=== PATIENT | male | born 1950 | race Caucasian/White ===

== ENCOUNTER 2018-02-14 01:39 | Inpatient (IN) | payer BC, MEDICARE ==
[2018-02-14] MEDS ORDERED: Nitroglycerin 2% Ointment Foilpak UD TOP ONE (01:50)
[2018-02-14] MEDS ORDERED: Nitroglycerin 2% Ointment Foilpak UD TOP STA ×2 (01:50→02:15)
[2018-02-14] MEDS ORDERED: Albuterol-Ipratrop 3 mg / 0.5 (3 ml) UD IH STA (01:53)
[2018-02-14] MEDS ORDERED: Albuterol-Ipratrop 3 mg / 0.5 (3 ml) UD ONE (01:56)
--- NOTE | 2018-02-14 01:57 | ED PDOC ---
Arrival/HPI - General Chief Complaint: Chest Pain Time Seen by Provider: 02/14/18 01:50 Historian: Patient - Critical Care Critical Care Minutes: Other (35 minutes) Critical Care Time: Excluding Proc Time - History of Present Illness Narrative History of Present Illness (Text): 67yo male with history of hypertension, CAD, CABG, presents to ER for evaluation of worsening dyspnea throughout today. He Reports associated chills and a mild chest pain. Patient has mild leg swelling as well, which he states is chronic. He denies any cough, sputum, or weakness. He denies any fever, known sick contacts, recent travels, history of asthma or pneumonia. Patient reports he takes Aspirin and Plavix daily. At home, patient had an O2 saturation in the high 80's on room air and states he is not on home oxygen. He has no other medical complaints. Time/Duration: Prior to Arrival Past Medical History - Provider Review Nursing Documentation Reviewed: Yes - Travel History Have you recently traveled outside [place] w/in the past 3 mons?: No - Infectious Disease Hx of Infectious Diseases: None - Cardiac Hx Cardiac Disorders: Yes - Psychiatric Hx Substance Use: No - Surgical History Hx Coronary Artery Bypass Graft: Yes - Anesthesia Hx Anesthesia: Yes Hx Anesthesia Reactions: No Hx Malignant Hyperthermia: No Family/Social History - Physician Review Nursing Documentation Reviewed: Yes Family/Social History: No Known Family HX Smoking Status: Former Smoker (quit 9 years ago) Hx Alcohol Use: No Hx Substance Use: No Allergies/Home Meds Allergies/Adverse Reactions: Allergies Sulfa (Sulfonamide Antibiotics) Allergy (Verified 02/14/18 01:43) ANAPHYLAXIS Home Medications: Home Meds Medication Instructions Recorded Confirmed Aspirin [Ecotrin] 81 mg PO DAILY 02/14/18 02/14/18 Atorvastatin [Lipitor] 10 mg PO HS 02/14/18 02/14/18 Clopidogrel [Plavix] 75 mg PO DAILY 02/14/18 02/14/18 Gabapentin [Neurontin] 300 mg PO TID 02/14/18 02/14/18 Levothyroxine [Synthroid] 125 mcg PO DAILY 02/14/18 02/14/18 Lisinopril [Zestril] 5 mg PO DAILY 02/14/18 02/14/18 Metoprolol Tartrate [Lopressor] 25 mg PO BID 02/14/18 02/14/18 Novolog 02/14/18 Review of Systems - Physician Review All systems were reviewed & negative as marked: Yes - Review of Systems Constitutional: Other (chills). absent: Fevers Respiratory: SOB. absent: Cough, Sputum Cardiovascular: Chest Pain Gastrointestinal: absent: Abdominal Pain Physical Exam Vital Signs Reviewed: Yes Vital Signs Temp Pulse Resp BP Pulse Ox 02/14/18 04:29 98.7 F 92 H 16 128/86 100 02/14/18 03:43 93 H 18 123/73 99 02/14/18 03:03 118/69 02/14/18 01:43 99 F 108 H 26 H 143/91 H 100 Temperature: Afebrile Pulse: Tachycardic Respiratory Rate: Tachypneic Appearance: Positive for: Non-Toxic, Uncomfortable Mental Status: Positive for: Alert and Oriented X 3 - Systems Exam Head: Present: Atraumatic, Normocephalic Pupils: Present: PERRL Extroacular Muscles: Present: EOMI Mouth: Present: Moist Mucous Membranes Respiratory/Chest: Present: Respiratory Distress, Accessory Muscle Use, Wheezes (mild expiratory), Decreased Breath Sounds (bilaterally), Tachypneic Cardiovascular: Present: Normal S1, S2, Tachycardic (108 bpm). No: Murmurs Abdomen: No: Tenderness, Distention, Peritoneal Signs Upper Extremity: Present: Normal Inspection. No: Cyanosis, Edema Lower Extremity: Present: Edema (+ mild pedal edema bilateral lower extremities) , Normal ROM Neurological: Present: GCS=15, CN II-XII Intact, Speech Normal Skin: Present: Diaphoretic (mild) Psychiatric: Present: Alert, Oriented x 3, Normal Insight, Normal Concentration Medical Decision Making ED Course and Treatment: Impression: 67yo male with worsening shortness of breath Plan: -- Labs -- EKG -- Chest X-ray -- Duoneb 3ml INH -- Apsirin 325mg PO -- O2 via NC -- Urinalysis -- Reassess and disposition Progress Notes: 02/14/18 02:14 Chest X-ray reviewed with congestive heart failure vs. bilateral pneumonia; currently awaiting labs to determine diuresis vs. increasing fluids. Will support respiratory status with BiPAP and order ABG. Patient had minimal relief with duoneb. On re-exam, lung sounds are decreased but do not sound wet. 02/14/18 02:44 Labs reviewed and remarkable for elevated BNP, minimally elevated WBC at 11.4 Given patient is afebrile and Chest X-ray indicates bilateral findings, this is more likely acute CHF. DDimer is elevated as well so cannot exclude PE, which may result in some pulmonary failure. Empiric treatment with heparin started, which will also treat for anginal equivalent. IV Lasix started. Nitro 2% ointment applied as well. Unable to do PE study as patient has elevated creatinine levels. 02/14/18 03:[address] Sutton and patient admitted to Telemetry due to new onset CHF. Consult placed to Dr. Devlin and Dr. Tena per Dr. Sutton's request. Reassessment Condition: Improving,but remains with symptoms - Critical Care Critical Care Minutes: 30 minutes - Lab Interpretations Microbiology Results: Microbiology Results 02/14/18 02:20 Blood Blood Culture - Final NO GROWTH AFTER 5 DAYS 02/14/18 02:20 Blood Gram Stain - Final TEST NOT PERFORMED 02/14/18 01:50 Blood Blood Culture - Final NO GROWTH AFTER 5 DAYS 02/14/18 01:50 Blood Gram Stain - Final TEST NOT PERFORMED Lab Results: 02/14/18 01:50 02/14/18 01:50 Lab Results 02/14/18 02:30: pCO2 36, pO2 89.0, HCO3 22.3, ABG pH 7.40, ABG Total CO2 23.4, ABG O2 Saturation 99.0 H, ABG O2 Content 16.4, ABG Base Excess -2.1 L, ABG Hemoglobin 12.1, ABG Carboxyhemoglobin 2.1 H, POC ABG HHb (Measured) 1.0, ABG Methemoglobin 1.0, ABG O2 Capacity 16.6, Hgb O2 Saturation 95.9, FiO2 28.0 02/14/18 02:28: Urine Color Yellow, Urine Appearance Clear, Urine pH 6.0, Ur Specific [place] 1.025, Urine Protein 100 H, Urine Glucose (UA) Negative, Urine Ketones Negative, Urine Blood Trace-intact H, Urine Nitrate Negative, Urine Bilirubin Negative, Urine Urobilinogen 0.2, Ur Leukocyte Esterase Negative, Urine RBC 0 - 2, Urine WBC 0 - 2, Ur Epithelial Cells 0 - 2, Urine Bacteria Rare , Hyaline Casts 0 - 2 02/14/18 01:50: pO2 50, VBG pH 7.29 L, VBG pCO2 56.0, VBG HCO3 26.9, VBG Total CO2 28.6 H, VBG O2 Sat (Calc) 86.0 H, VBG Base Excess -0.7 L, VBG Potassium 4.9 , Sodium 138.0, Chloride 106.0, Glucose 166 H, Lactate 1.0, FiO2 21.0, Venous Blood Potassium 4.9 02/14/18 01:50: Sodium 142, Chloride 105, Potassium 4.9, Carbon Dioxide 25, Anion Gap 17, BUN 35 H, Creatinine 2.0 H, Est GFR ( Amer) 40, Est GFR ( Non-Af Amer) 33, Random Glucose 168 H, Calcium 9.0, Magnesium 1.8, Total Bilirubin 0.9, AST 46, ALT 60 H, Alkaline Phosphatase 63, Lactate Dehydrogenase 577, Total Creatine Kinase 302 H, CK-MB (CK-2) 2.1, CK-MB (CK-2) % Cancelled, Troponin I 0.02, NT-Pro-B Natriuret Pep 1360 H, Total Protein 7.8, Albumin 4.3, Globulin 3.5, Albumin/Globulin Ratio 1.2 02/14/18 01:50: PT 12.2, INR 1.07, APTT 25.6, D-Dimer, Quantitative 256 H 02/14/18 01:50: WBC 11.4 H, RBC 4.89, Hgb 13.7 L, Hct 41.1 L, MCV 84.0, MCH 28.0 , MCHC 33.3, RDW 14.0, Plt Count 176, MPV 10.5, Gran % 74.5 H, Lymph % (Auto) 15.4 L, [place] % (Auto) 7.1 H, Eos % (Auto) 2.7, Baso % (Auto) 0.3, Gran # 8.45 H , Lymph # (Auto) 1.8, [place] # (Auto) 0.8 H, Eos # (Auto) 0.3, Baso # (Auto) 0.03 - RAD Interpretation Radiology Orders: 02/14/18 01:50 CHEST PORTABLE [RAD] Stat - EKG Interpretation EKG Interpretation (Text): Sinus tachycardia at 108bpm Inferior q-wave Left axis deviation No ST changes Slight intraventricular delay QTc 490ms Interpreted by ED Physician: Yes - Medication Orders Current Medication Orders: Acetaminophen (Tylenol 325mg Tab) 650 mg PO Q4H PRN PRN Reason: Pain, Mild (1-3) Last Admin: 02/18/18 21:34 Dose: 650 mg MAR Pain/Vitals Document 02/18/18 21:34 BR (Rec: 02/18/18 21:34 BR [id number]) Pain Reassessment Is This A Pain ReAssessment? No Sleep Is patient sleeping during reassessment? No Presence of Pain Presence of Pain Yes Allopurinol (Zyloprim) 300 mg PO DAILY [facility] Last Admin: 02/19/18 11:45 Dose: Aspirin (Ecotrin) 81 mg PO DAILY [facility] Last Admin: 02/19/18 11:28 Dose: Atorvastatin Calcium (Lipitor) 10 mg PO DIN [facility] Last Admin: 02/18/18 17:36 Dose: 10 mg Carvedilol (Coreg) 3.125 mg PO BID [facility] Last Admin: 02/19/18 11:27 Dose: MAR Pulse and Blood Pressure Document 02/19/18 11:27 ID (Rec: 02/19/18 11:27 ID [id number]) Pulse Pulse Rate (60-90) 82 Blood Pressure Blood Pressure (100/60-150/90) 109/62 Clopidogrel Bisulfate (Plavix) 75 mg PO DAILY [facility] Last Admin: 02/19/18 11:40 Dose: Colchicine (Colocrys) 0.6 mg PO DAILY [facility] Stop: 02/21/18 23:59 Last Admin: 02/19/18 11:26 Dose: Digoxin (Digoxin) 0.125 mg PO [id number] [facility] Last Admin: 02/19/18 13:38 Dose: 0.125 mg MAR Apical Pulse Rate Document 02/19/18 13:38 ID (Rec: 02/19/18 13:38 ID [id number]) Apical Pulse Rate Apical Pulse Rate (60-90 beats/min) 82 Enoxaparin Sodium (Lovenox) 30 mg SC DAILY [facility] PRN Reason: Protocol Last Admin: 02/19/18 11:38 Dose: Famotidine (Pepcid) 40 mg PO BID [facility] Last Admin: 02/19/18 11:39 Dose: Furosemide (Lasix) 40 mg PO DAILY [facility] Last Admin: 02/19/18 11:36 Dose: MAR Blood Pressure Document 02/19/18 11:36 ID (Rec: 02/19/18 11:37 ID [id number]) Blood Pressure Blood Pressure (100/60-150/90) 109/66 Gabapentin (Neurontin) 300 mg PO TID [facility] PRN Reason: Protocol Last Admin: 02/19/18 13:39 Dose: 300 mg Behavioural Document 02/19/18 13:39 ID (Rec: 02/19/18 13:39 ID [id number]) Maintenance Maintenance Dose Yes Nonmedicinal Nonmedicinal Interventions Redirect Insulin Human Regular (Humulin R Low) 0 units SC ACHS [facility] PRN Reason: Protocol Last Admin: 02/19/18 12:31 Dose: Isosorbide Mononitrate (Imdur Er) 30 mg PO DAILY [facility] Last Admin: 02/19/18 11:36 Dose: Levothyroxine Sodium (Synthroid) 150 mcg PO 0600 [facility] Last Admin: 02/18/18 08:51 Dose: 150 mcg Ondansetron HCl (Zofran Inj) 4 mg IVP Q4H PRN PRN Reason: Nausea/Vomiting Polysaccharide Iron Complex (Ferrex-150) 150 mg PO DAILY [facility] Last Admin: 02/19/18 11:29 Dose: Discontinued Medications Albuterol/Ipratropium (Duoneb 3 Mg/0.5 Mg (3 Ml) Ud) 3 ml IH STAT STA Stop: 02/14/18 01:54 Last Admin: 02/14/18 02:01 Dose: 3 ml Aspirin (Aspirin) 325 mg PO STAT STA Stop: 02/14/18 01:51 Last Admin: 02/14/18 02:04 Dose: 325 mg Colchicine (Colocrys) 0.6 mg PO STAT STA Stop: 02/18/18 09:06 Last Admin: 02/18/18 10:40 Dose: 0.6 mg Colchicine (Colocrys) 0.6 mg PO ONCE ONE Stop: 02/18/18 13:01 Last Admin: 02/18/18 15:26 Dose: 0.6 mg Famotidine (Pepcid) 40 mg PO HS [facility] Last Admin: 02/16/18 21:14 Dose: 40 mg Furosemide (Lasix) 40 mg IVP STAT STA Stop: 02/14/18 02:41 Last Admin: 02/14/18 03:03 Dose: 40 mg MAR Blood Pressure Document 02/14/18 03:03 RG (Rec: 02/14/18 03:06 RG [id number]) Blood Pressure Blood Pressure (100/60-150/90) 118/69 IVP Administration Document 02/14/18 03:03 RG (Rec: 02/14/18 03:06 RG [id number]) Charges for Administration # of IVP Administrations 1 Furosemide (Lasix) 40 mg IV DAILY [facility] Last Admin: 02/15/18 09:13 Dose: 40 mg eMAR Start Stop Document 02/15/18 09:13 VM (Rec: 02/15/18 09:13 VM [id number]) Intravenous Solution Start Date 02/15/18 Start Time 09:13 MAR Blood Pressure Document 02/15/18 09:13 VM (Rec: 02/15/18 09:13 VM [id number]) Blood Pressure Blood Pressure (100/60-150/90) 108/65 Furosemide (Lasix) 40 mg IV ONCE ONE Stop: 02/14/18 18:20 Last Admin: 02/14/18 19:53 Dose: 40 mg eMAR Start Stop Document 02/14/18 19:53 BK (Rec: 02/14/18 19:53 BK [id number]) Intravenous Solution Start Date 02/14/18 Start Time 19:53 End Date 02/14/18 End time 19:55 Total Infusion Time 2 MAR Blood Pressure Document 02/14/18 19:53 BK (Rec: 02/14/18 19:53 BK [id number]) Blood Pressure Blood Pressure (100/60-150/90) 101/61 Heparin Sodium/Sodium Chloride (Heparin 64020 Units/250ml 1/2 Normal Saline) 25 ,000 units in 250 mls @ 15.431 mls/hr IV .[id number] PRN; Protocol; 18 UNITS/KG/HR PRN Reason: ADJUST RATE PER PROTOCOL Heparin Sodium/Sodium Chloride (Heparin 00866 Units/250ml 1/2 Normal Saline) 25 ,000 units in 250 mls @ 16.133 mls/hr IV .[id number] PRN; Protocol; 18 UNITS/KG/HR PRN Reason: ADJUST RATE PER PROTOCOL Last Titration: 02/14/18 03:40 Dose: 18 units/kg/hr, 16.133 mls/hr Titration Intervention Document 02/14/18 03:40 RG (Rec: 02/14/18 04:28 RG [id number]) Titration Intake Container Volume 250 Titration Dosing Titration Dose 18 IV Rate 16.133 Intake/Decrease Started Milrinone Lactate/Dextrose (Primacor 20mg/100ml D5w) 100 mls @ 5.383 mls/hr IV .[id number] PRN; Protocol; 0.2 MCG/KG/MIN PRN Reason: TITRATE PER MD ORDER Stop: 02/17/18 07:00 Last Admin: 02/16/18 20:11 Dose: 0.2 mcg/kg/min, 5.383 mls/hr eMAR Start Stop Document 02/16/18 20:11 FDE (Rec: 02/16/18 20:11 FDE [id number]) Intravenous Solution Start Date 02/16/18 Start Time 20:11 Titration Intervention Document 02/16/18 20:11 FDE (Rec: 02/16/18 20:11 FDE [id number]) Titration Intake Cumulative Intake (Rx) 300 Waste Amount 0 Container Volume 100 Titration Dosing Titration Dose 0.2 IV Rate 5.383 Intake/Decrease Started/Running Cumulative Dose 60 Iron Sucrose 200 mg/ Sodium (Chloride) 110 mls @ 110 mls/hr IVPB ONCE ONE Stop: 02/18/18 14:44 Last Admin: 02/18/18 15:13 Dose: 110 mls/hr eMAR Start Stop Document 02/18/18 15:13 DSZ (Rec: 02/18/18 15:13 DSZ [id number]) Intravenous Solution Start Date 02/18/18 Start Time 15:13 Levothyroxine Sodium (Synthroid) 125 mcg PO 0600 [facility] Last Admin: 02/15/18 05:24 Dose: 125 mcg Levothyroxine Sodium (Synthroid) 150 mcg PO 0600 [facility] Lisinopril (Zestril) 5 mg PO DAILY [facility] Last Admin: 02/15/18 09:11 Dose: 5 mg MAR Pulse and Blood Pressure Document 02/15/18 09:11 VM (Rec: 02/15/18 09:12 VM [id number]) Pulse Pulse Rate (60-90) 111 Blood Pressure Blood Pressure (100/60-150/90) 108/65 Metoprolol Tartrate (Lopressor) 25 mg PO BRKDIN [facility] Stop: 02/16/18 16:00 Last Admin: 02/16/18 08:23 Dose: 25 mg MAR Pulse and Blood Pressure Document 02/16/18 08:23 DLL (Rec: 02/16/18 08:24 DLL [id number]) Pulse Pulse Rate (60-90) 76 Blood Pressure Blood Pressure (100/60-150/90) 127/70 Nitroglycerin (Nitro-Bid 2% Oint) 1 ea TOP STAT STA Stop: 02/14/18 02:16 Last Admin: 02/14/18 03:26 Dose: 1 ea Nitroglycerin (Nitro-Bid 2% Oint) 0.5 ea TOP Q6H [facility] Last Admin: 02/17/18 09:29 Dose: Not Given Non-Admin Reason: Patient Refused Sodium Polystyrene Sulfonate (Kayexalate Susp) 30 gm PO ONCE ONE Stop: 02/17/18 09:13 Last Admin: 02/17/18 09:36 Dose: 30 gm Sodium Polystyrene Sulfonate (Kayexalate Susp) 15 gm PO ONCE ONE Stop: 02/17/18 16:42 Last Admin: 02/17/18 17:53 Dose: 15 gm Sodium Polystyrene Sulfonate (Kayexalate Susp) 30 gm PO ONCE ONE Stop: 02/18/18 08:42 Last Admin: 02/18/18 08:51 Dose: 30 gm Sodium Polystyrene Sulfonate (Kayexalate Susp) 30 gm PO ONCE ONE Stop: 02/18/18 14:01 Last Admin: 02/18/18 15:16 Dose: 30 gm - Scribe Statement The provider has reviewed the documentation as recorded by the Addie Pollard Provider Scribe Attestation: All medical record entries made by the Addie were at my direction and personally dictated by me. I have reviewed the chart and agree that the record accurately reflects my personal performance of the history, physical exam, medical decision making, and the department course for this patient. I have also personally directed, reviewed, and agree with the discharge instructions and disposition. Disposition/Present on Arrival - Present on Arrival Any Indicators Present on Arrival: No History of DVT/PE: No History of Uncontrolled Diabetes: No Urinary Catheter: No History of Decub. Ulcer: No History Surgical Site Infection Following: None - Disposition Have Diagnosis and Disposition been Completed?: Yes Diagnosis: Congestive heart failure Disposition: HOSPITALIZED Disposition Time: 03:39 Patient Plan: Admission, Telemetry Patient Problems: Current Active Problems Problem Status Onset Congestive heart failure Acute Condition: GUARDED
[2018-02-14 02:12] LABS: BASO # 0.03 K/mm3 (0.0-2.0); BASO % 0.3 % (0.0-3.0); EOS # 0.3 (0.0-0.7); EOS % 2.7 % (1.5-5.0); GRAN # 8.45 (1.4-6.5); GRAN % 74.5 % (50.0-68.0); HEMOGLOBIN 13.7 g/dL (14.0-18.0); LYMPH # 1.8 (1.2-3.4); LYMPH % 15.4 % (22.0-35.0); MEAN CORPUSCULAR HGB CONC 33.3 g/dl (31.0-37.0); MEAN PLATELET VOLUME 10.5 fl (7.0-11.0); MONO # 0.8 (0.1-0.6); MONO % 7.1 % (1.0-6.0); RBC 4.89 10^6/uL (3.5-6.1); WHITE BLOOD COUNT 11.4 10^3/ul (4.5-11.0)
[2018-02-14 02:20] LABS: ALB/GLOB RATIO 1.2 (1.1-1.8); ALBUMIN 4.3 g/dL (3.0-4.8)
[2018-02-14 02:23] LABS: INR 1.07 (0.93-1.08); PARTIAL THROMBOPLASTIN TIME 25.6 Seconds (25.1-36.5); PROTHROMBIN TIME 12.2 SECONDS (9.4-12.5)
[2018-02-14 02:32] LABS: TROPONIN I 0.02 ng/mL
[2018-02-14 02:34] LABS: VENOUS BLOOD GAS BASE EXCESS -0.7 mmol/L (0.0-2.0); VENOUS BLOOD GAS PO2 50 mm/Hg (30-55); VENOUS BLOOD PH 7.29 (7.32-7.43)
[2018-02-14 02:41] LABS: URINE BILIRUBIN NEGATIVE (NEGATIVE); URINE BLOOD TRACE-INTACT (NEGATIVE); URINE GLUCOSE (UA) NEGATIVE (NEGATIVE); URINE LEUKOCYTE ESTERASE NEGATIVE Leu/uL (NEGATIVE); URINE PROTEIN 100 mg/dL (<30 mg/dL); URINE UROBILINOGEN 0.2 E.U./dL (<1 E.U./dL)
[2018-02-14] MEDS ORDERED: Heparin25000 units/250ml 1/2NS 25,000 UNITS/250 ML BAG IV PRN (02:41)
[2018-02-14 02:42] LABS: URINE APPEARANCE CLEAR (CLEAR); URINE COLOR YELLOW (YELLOW)
[2018-02-14 02:44] LABS: CK-MB 2.1 ng/mL (0.0-3.6)
[2018-02-14 02:48] LABS: ARTERIAL BLOOD GAS HCO3 22.3 mmol/L (21-28); ARTERIAL BLOOD GAS HEMOGLOBIN 12.1 g/dL (11.7-17.4); ARTERIAL BLOOD GAS O2 CAPACITY 16.6 mL/dl (16-24); ARTERIAL BLOOD GAS O2 CONTENT 16.4 ML/dl (15-23); ARTERIAL BLOOD GAS PCO2 36 mm/Hg (35-45); ARTERIAL BLOOD GAS TCO2 23.4 mmol.L (22-28)
[2018-02-14 02:54] LABS: URINE BACTERIA RARE (NEG); URINE EPITHELIAL CELLS 0 - 2 /hpf (0-5); URINE RBC 0 - 2 /hpf (0-2); URINE WBC 0 - 2 /hpf (0-6)
[2018-02-14 02:55] LABS: URINE HYALINE CAST 0 - 2 /hpf
[2018-02-14 03:11] VITALS: BMI 31.8
[2018-02-14] MEDS ORDERED: Heparin 25,000units in 1/2NS /250 ML BAG IV PRN (03:35)
--- NOTE | 2018-02-14 08:11 | CP.PCM.CON ---
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 Claimed to have mild chest pain. Also complaints of bilateral leg pain, pain to touch to lower extremities . History of hypertension , ex-smoker, CAD with bypass grafting (CABG 5 years ago at [facility]hypothyroidism , diabetes, diabetic neuropathy,arthritis,hyperlipidemia. 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 Seen and examined by me and Dr. Ramsay Review of Systems - Constitutional Constitutional: As Per HPI - Cardiovascular Additional comments: denies chest pain now, mild chest pain yesterday - Respiratory Respiratory: Dyspnea on Exertion Additional comments: Nasal cannula - Gastrointestinal Additional comments: denies nausea,denies vomiting - Genitourinary Additional comments: one kidney smaller since childhood - Neurological Additional comments: denies problems Past Patient History - Infectious Disease Hx of Infectious Diseases: None - Past Social History Smoking Status: Former Smoker - CARDIAC Hx Cardiac Disorders: Yes (CAD, CABG) Hx Hypercholesterolemia: Yes Hx Hypertension: Yes - PULMONARY Hx Respiratory Disorders: No - NEUROLOGICAL Hx Neurological Disorder: No - HEENT Hx HEENT Problems: No Hx Cataracts: Yes (WITH SURGERY) - RENAL Hx Chronic Kidney Disease: No - ENDOCRINE/METABOLIC Hx Endocrine Disorders: Yes Hx Diabetes Mellitus Type 2: Yes (NEUROPATHY) Hx Hypothyroidism: Yes - HEMATOLOGICAL/ONCOLOGICAL Hx Blood Disorders: No - INTEGUMENTARY Hx Dermatological Problems: No - MUSCULOSKELETAL/RHEUMATOLOGICAL Hx Musculoskeletal Disorders: Yes Hx Arthritis: Yes Hx Back Pain: Yes Hx Falls: No Hx Fractures: Yes (L RIB) Other/Comment: L THUMB PARTIAL AMPUTATION S/P INJURY - GASTROINTESTINAL Hx Gastrointestinal Disorders: No - GENITOURINARY/GYNECOLOGICAL Hx Genitourinary Disorders: No - PSYCHIATRIC Hx Psychophysiologic Disorder: No Hx Substance Use: No - SURGICAL HISTORY Hx Surgeries: Yes Hx Cardiac Catheterization: Yes Hx Coronary Stent: Yes Hx Open Heart Surgery: Yes (CABG) Other/Comment: CATARACT SURGERY, TONSILLECTOMY - ANESTHESIA Hx Anesthesia: Yes Hx Anesthesia Reactions: No Hx Malignant Hyperthermia: No Meds Allergies/Adverse Reactions: Allergies Allergy/AdvReac Type Severity Reaction Status Date / Time Sulfa (Sulfonamide Allergy ANAPHYLAXIS Verified 02/14/18 01:43 Antibiotics) - Medications Medications: Current Medications Acetaminophen (Tylenol 325mg Tab) 650 mg PO Q4H PRN PRN Reason: Pain, Mild (1-3) Heparin Sodium/Sodium Chloride (Heparin 32284 Units/250ml 1/2 Normal Saline) 25 ,000 units in 250 mls @ 16.133 mls/hr IV .[id number] PRN; Protocol; 18 UNITS/KG/HR PRN Reason: ADJUST RATE PER PROTOCOL Last Titration: 02/14/18 03:40 Dose: 18 units/kg/hr, 16.133 mls/hr Ondansetron HCl (Zofran Inj) 4 mg IVP Q4H PRN PRN Reason: Nausea/Vomiting Physical Exam - Constitutional Additional comments: Mild shortness of breath at rest - Eye Exam Eye Exam: Normal appearance - ENT Exam ENT Exam: Mucous Membranes Moist - Respiratory Exam Respiratory Exam: Decreased Breath Sounds, NORMAL BREATHING PATTERN - Cardiovascular Exam Cardiovascular Exam: +S1, +S2 - GI/Abdominal Exam GI & Abdominal Exam: Normal Bowel Sounds, Soft - Extremities Exam Additional comments: 1+ edema, pain to touch - Neurological Exam Neurological exam: Alert, Oriented x3 - Psychiatric Exam Psychiatric exam: Normal Affect, Normal Mood - Skin Skin Exam: Intact, Normal Color, Warm Results - Vital Signs Recent Vital Signs: Last Vital Signs Temp 98.4 F 02/14/18 05:05 Pulse 91 H 02/14/18 05:56 Resp 20 02/14/18 05:56 BP 109/63 02/14/18 05:05 Pulse Ox 98 02/14/18 05:56 - Labs Result Diagrams: 02/14/18 01:50 02/14/18 01:50 Labs: Laboratory Results - last 24 hr 02/14/18 07:29 POC Glucose (mg/dL) 116 H Assessment & Plan - Assessment and Plan (Free Text) Assessment: Brief history of present illness: A 67 year old male who came in to the ER due to 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 Claimed to have mild chest pain. Also complaints of bilateral leg pain, pain to touch to lower extremities . History of hypertension , ex-smoker, CAD with bypass grafting (CABG 5 years ago at [facility]hypothyroidism , diabetes, diabetic neuropathy,arthritis,hyperlipidemia. 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 Plan: Acute shortness of breath D-dimer elevated, possible acute pulmonary embolism Possible acute congestive heart failure Started on Heparin drip, titrate to protocol Will order VQ scan to rule out PE CT scan not done due to elevated BUN/Creatinine Will order troponin to rule out ischemia ECHO to evaluate LV function Heart rate and blood pressure controlled Leg pain, Vascular studies to rule out DVT Will follow up Plan and treatment discussed with Dr. Ramsay Thank you for the opportunity of taking care of Mr. Moraima Lee
--- NOTE | 2018-02-14 08:30 | RAD ---
HISTORY: SOB COMPARISON: No prior. FINDINGS: LUNGS: Moderate vascular and interstitial congestion PLEURA: No significant pleural effusion identified, no pneumothorax apparent. CARDIOVASCULAR: Normal. OSSEOUS STRUCTURES: No significant abnormalities. VISUALIZED UPPER ABDOMEN: Normal. OTHER FINDINGS: None. IMPRESSION: Moderate vascular and interstitial congestion
--- NOTE | 2018-02-14 09:10 | CARD ---
APPROVED REPORT EKG Measurement Heart [id number] AL [id number] <Conclusion> Sinus tachycardia Possible Left atrial enlargement Left axis deviation Nonspecific intraventricular block Abnormal ECG
[2018-02-14] MEDS: Nitroglycerin 2% Ointment Foilpak UD TOP SCH ×3 (10:58→21:41)
[2018-02-14 11:18] LABS: TROPONIN I 0.02 ng/mL
--- NOTE | 2018-02-14 14:20 | NM ---
COMPARISON: Portable chest film 02/14/2018 TECHNIQUE: 33.2 mCi technetium 99-m inhaled DTPA 3.6 mCI technetium 99-m MAA administered intravenously. FINDINGS: VENTILATION COMPONENT: Normal. PERFUSION COMPONENT: Normal. IMPRESSION: Lowprobability ventilation perfusion scan for pulmonary embolism.
--- NOTE | 2018-02-14 16:30 | CON ---
DATE: 02/14/2018 PULMONARY CONSULT REFERRING PHYSICIAN: Yessi Sutton MD. REASON FOR CONSULTATION: Cough and shortness of breath. HISTORY OF PRESENT ILLNESS: This is a 67-year-old gentleman with past medical history significant for hypertension, coronary artery disease, history of coronary artery bypass surgery in the past, comes in to emergency room with chest discomfort, has some leg swelling. No fever. No chills. No hemoptysis. Had a D-dimer positive in the ER. Was placed on heparin IV. According to the patient, his pulse ox dropped down to 80s at home. PAST MEDICAL HISTORY: Coronary artery disease, history of coronary artery bypass surgery, hypertension. FAMILY HISTORY: No significant cardiopulmonary disease reported. SOCIAL HISTORY: Stopped smoking many years ago. Denies any alcohol use. ALLERGIES: TO SULFA. MEDICATIONS: He is on Ecotrin 81 mg daily, IV heparin, also Lasix 40 mg daily, Lipitor 10 mg daily, metoprolol tartrate 25 mg twice a day, Neurontin 300 mg three times a day, Plavix 75 mg daily, Synthroid 125 mcg daily, Tylenol p.r.n., Zestril 5 mg daily, Zofran p.r.n. REVIEW OF SYSTEMS: No headache. No rhinitis. Not much cough. No sputum production. Mild shortness of breath. No chest pain at present. No dysuria, leg pain. Trace leg swelling, though. PHYSICAL EXAMINATION: GENERAL: He was examined in the Nuclear Department. VITAL SIGNS: Temperature is 98, heart rate is 95, respiratory rate is 20, blood pressure 110/70, pulse ox 98% on 2 L nasal cannula. HEENT: Moist mucous membrane. Crowded airway. Mallampati score is 4. NECK: Supple. No JVD. LUNGS: Have a fair airflow with rhonchi. HEART: S1 and S2. ABDOMEN: Soft, nontender. No organomegaly. EXTREMITIES: Trace edema. NEUROLOGICAL: Awake and alert. Follows simple command. LABORATORY DATA: Shows hemoglobin 13.7, hematocrit 41.1, WBC 11.4, platelet is 176. INR is 1.07. PTT is 61. Has an ABG done, which showed pH 7.40, pCO2 of 36, O2 of 89, this is on nasal cannula. Sodium 142, potassium 4.9, chloride 105, bicarbonate is 25, BUN 35, creatinine 2, glucose 124, calcium is 9, magnesium 1.8, AST 46, ALT 60, alk phos is 63, LDH 460. ProBNP 1360. Albumin 4.3. TSH 4.96. His D-dimer is 256. V/Q scan is done, which showed low probability of ventilation-perfusion scan of pulmonary embolism. Venous Doppler is done, report is pending. Echocardiogram done, report is pending. IMPRESSION AND PLAN: Coronary artery disease, history of coronary artery bypass surgery, hypothyroid, hypertension, ex-smoker, diabetes. The patient was evaluated by Cardiology. Echocardiogram done, report is pending. Pulmonary point of view, I will discontinue IV heparin, place him on deep venous thrombosis prophylaxis. Cardiac workup. Outpatient will need pulmonary function test to assess lung function, also may need sleep study. Thank you and we will follow with you. Jeb Tena MD
--- NOTE | 2018-02-14 17:17 | US ---
HISTORY: Leg pain and swelling. Evaluate for DVT PHYSICIAN(S): Trent Chavez MD. TECHNIQUE: Duplex sonography and color-flow Doppler with graded compression were used to evaluate the deep venous systems of both lower extremities. FINDINGS: The visualized deep venous systems of both lower extremities are sonographically normal and compressible. Normal wave forms and augmentation are seen. There is no sonographic evidence for deep venous thrombosis in the visualized segments of both lower extremities. IMPRESSION: No sonographic evidence for deep venous thrombosis in the visualized segments of both lower extremities.
--- NOTE | 2018-02-14 18:17 | CARD ---
APPROVED REPORT EXAM: Two-dimensional and M-mode echocardiogram with Doppler and color Doppler. INDICATION Dyspnea Cardiac Disease: CAD CABG 2D DIMENSIONS Left Atrium (2D)4.2 (1.6-4.0cm)IVSd1.0 (0.7-1.1cm) LVDd5.8 (3.9-5.9cm)PWd1.1 (0.7-1.1cm) LVDs5.0 (2.5-4.0cm)FS (%) 13.4 % LVEF (%)28.1 (>50%) M-Mode DIMENSIONS Aortic Root2.70 (2.2-3.7cm)Aortic Cusp Exc.0.70 (1.5-2.0cm) Aortic Valve AoV Peak Iovvkzoe976.0cm/Bandar Peak GR.11mmHgLVOT Peak Ihlpgokz82.1cm/s LVOT VTI13.40cm Mitral Valve MV E Mvyfuyow367.0cm/sMV A Tqgquslj09.1cm/sE/A ratio1.4 TDI E/Lateral E'0.0E/Medial E'0.0 Tricuspid Valve TR Peak Lyxiabnt251zk/sRAP PCDPKYHZ19sgMiUG Peak Gr.26mmHg [id number] LEFT VENTRICLE The Left Ventricle is mildly dilated. There is normal left ventricular wall thickness. The systolic function is severely impaired.EF-25% There is global hypokinesis of the left ventricle. There is moderate to severe hypokinesis in the apical anterior wall. Transmitral Doppler flow pattern is Grade II-pseudonormal filling dynamics. No left ventricle thrombus noted on this study. There is no ventricular septal defect visualized. There is no left ventricular aneurysm. There is no mass noted in the left ventricle. RIGHT VENTRICLE The right ventricle is normal size. There is normal right ventricular wall thickness. The right ventricular systolic function is normal. ATRIA The left atrium is mildly dilated. The right atrium size is normal. The interatrial septum is intact with no evidence for an atrial septal defect. AORTIC VALVE The aortic valve is calcified and displays decreased opening. There is trace to mild aortic regurgitation. There is mild to moderate valvular aortic stenosis. There is no aortic valvular vegetation. MITRAL VALVE The mitral valve is thickened but opens well. Mitral regurgitation is moderate. There is no mitral valve stenosis. There is no evidence of mitral valve prolapse. TRICUSPID VALVE The tricuspid valve leaflets are thickened , but open well. There is mild tricuspid regurgitation.RVSP-36 mmof hg. There is no tricuspid valve stenosis. There is no tricuspid valve prolapse or vegetation. PULMONIC VALVE The pulmonic valve is not well visualized. GREAT VESSELS The aortic root is normal in size. The ascending aorta is normal in size. The pulmonary artery is normal. The IVC is normal in size and collapses >50% with inspiration. PERICARDIAL EFFUSION There is no pleural effusion. There is no pericardial effusion. <Conclusion> The Left Ventricle is mildly dilated. There is normal left ventricular wall thickness. The systolic function is severely impaired.EF-25% There is trace to mild aortic regurgitation. There is mild to moderate valvular aortic stenosis. Mitral regurgitation is moderate. There is mild tricuspid regurgitation.RVSP-36 mmof hg. The IVC is normal in size and collapses >50% with inspiration. There is no pericardial effusion.
[2018-02-14] MEDS: Milrinone 20mg/100ml D5W 100 ML IV PRN (20:44)
[2018-02-15] MEDS: Nitroglycerin 2% Ointment Foilpak UD TOP SCH ×4 (03:32→21:10)
[2018-02-15] MEDS ORDERED: Levothyroxine 125 MCG TAB PO SCH (06:00)
[2018-02-15 07:09] LABS: IRON 34 ug/dL (45-180)
[2018-02-15 07:19] LABS: TROPONIN I 0.02 ng/mL
[2018-02-15 07:22] LABS: LDL CHOLESTEROL 68 mg/dL (0-129)
[2018-02-15 07:24] LABS: % IRON SATURATION 13 % (20-55); TOTAL IRON BINDING CAPACITY 262 ug/dL (261-462)
[2018-02-15 07:26] LABS: ALB/GLOB RATIO 1.2 (1.1-1.8); ALBUMIN 3.8 g/dL (3.0-4.8); ALT/SGPT 50 U/L (7-56); AST/SGOT 41 U/L (17-59); BASO # 0.02 K/mm3 (0.0-2.0); BASO % 0.2 % (0.0-3.0); BLOOD UREA NITROGEN 48 mg/dL (7-21); CALCIUM 8.5 mg/dL (8.4-10.5); EOS # 0.3 (0.0-0.7); EOS % 2.8 % (1.5-5.0); GFR AFRICAN-AMERICAN 28; GFR NON-AFRICAN AMERICAN 24; GRAN # 7.25 (1.4-6.5); GRAN % 72.2 % (50.0-68.0); HDL CHOLESTEROL 35 mg/dL (29-60); HEMOGLOBIN 11.7 g/dL (14.0-18.0); LYMPH # 1.3 (1.2-3.4); LYMPH % 12.7 % (22.0-35.0); MEAN CELL VOLUME 83.3 fl (80.0-105.0); MEAN CORPUSCULAR HEMOGLOBIN 27.1 pg (25.0-35.0); MEAN CORPUSCULAR HGB CONC 32.5 g/dl (31.0-37.0); MEAN PLATELET VOLUME 10.3 fl (7.0-11.0); MONO # 1.2 (0.1-0.6); MONO % 12.1 % (1.0-6.0); RBC 4.32 10^6/uL (3.5-6.1); RED CELL DISTRIBUTION WIDTH 13.8 % (11.5-14.5); WHITE BLOOD COUNT 10.1 10^3/ul (4.5-11.0)
[2018-02-15] MEDS: Milrinone 20mg/100ml D5W 100 ML IV PRN (11:12)
[2018-02-15] MEDS: Insulin Reg-LOW-Coverage SC SCH ×3 (11:33→21:07)
[2018-02-15] MEDS: Enoxaparin 30 mg Syringe SC SCH (11:34)
[2018-02-15 14:21] LABS: FOLATE > 20.0 ng/mL
--- NOTE | 2018-02-15 16:32 | PN ---
DATE: 02/15/2018 REASON FOR CONSULTATION: Shortness of breath; coronary artery disease, status post CABG; acute decompensated congestive heart failure on chronic CHF secondary to ischemic cardiomyopathy. SUBJECTIVE: The patient denies any chest pain, denies any palpitations. Shortness of breath is improving. OBJECTIVE: GENERAL: Not in apparent distress. VITAL SIGNS: Temperature afebrile, heart rate 95, blood pressure 108/65. HEENT: PERRLA. Extraocular muscles intact. NECK: Supple. No carotid bruit. No thyromegaly. CHEST: Clear to auscultation. HEART: S1 and S2 regular. ABDOMEN: Soft. EXTREMITIES: Clubbing and cyanosis negative. LABORATORY DATA: Blood workup as follows; WBC 10.9, hemoglobin 11.9, hematocrit 36, platelet count 177. Chemistry shows sodium 130, potassium 5, chloride 100, carbon dioxide 28, anion gap of 16, BUN 48, creatinine 2.7. BNP is 1360. TSH 4.96, triglycerides 113, cholesterol 146, LDL 86, HDL 39. Troponin remains 0.02, negative. The patient underwent echocardiography that revealed ejection fraction 25%, gbbil-ja-gqvb aortic regurgitation, qvao-la-rsjsjebo valvular aortic stenosis, moderate mitral regurgitation, moderate tricuspid regurgitation, RV systolic pressure 36. Extremity ultrasound duplex scan is negative for DVT. V/Q scan, also low probability. IMPRESSION: No evidence of acute myocardial infraction. No evidence of acute deep venous thrombosis or pulmonary embolism; decompensated congestive heart failure, acute on chronic secondary to systolic dysfunction; history of coronary artery disease, status post coronary artery bypass grafting; diabetes; hypertension; hyperlipidemia; three-vessel coronary artery bypass grafting 5 years ago at [facility]; hypothyroidism; diabetic neuropathy; diabetic nephropathy. RECOMMENDATIONS: Continue gentle diuretics as renal function is tolerated. Continue IV Primacor. Suggest cardiac catheterization. If renal function remains stable, we will consider cardiac catheterization. Otherwise, we will do a stress test on Saturday. However, this cardiac catheterization clinical course and troponin level and renal function. We will follow with you. The patient has a history of stent prior to CABG. Continue Synthroid the patient was at home 125 mcg, but increase to 150. Continue atorvastatin. We will hold lisinopril because of the worsening renal insufficiency. Continue milrinone and monitor renal function closely. We will give DVT prophylaxis. Heparin was discontinued. Give renal adjusted dose of DVT prophylaxis and increase levothyroxine to 150 because of very elevated TSH. So far no evidence of acute UT. Repeat the lab in the morning. We will change Lasix to p.o. We will follow with you depending upon the renal function; as mentioned, we will schedule cardiac catheterization on Saturday versus a stress test. Thank you, Dr. Sutton, for providing us the opportunity in taking care of the patient, Moraima Rosa. Jeb Ramsay MD
--- NOTE | 2018-02-15 20:08 | PN ---
DATE: 02/15/2018 PULMONARY PROGRESS NOTE REFERRING PHYSICIAN: Yessi Sutton MD. SUBJECTIVE: Patient is lying in the bed, head at 45 degrees, sleepy, arousable, could not use CPAP last night. No headache, no rhinitis. No nausea, no dysuria. No leg pain, no leg swelling. OBJECTIVE: GENERAL: In no acute distress. VITAL SIGNS: Temperature is 98, heart rate 93, respiratory rate is 18, blood pressure 106/65, pulse ox 96% on nasal cannula. HEENT: Moist mucous membrane. Crowded airway. Mallampati score is 4. NECK: Supple. No JVD. LUNGS: Have a fair airflow with rhonchi. HEART: S1, S2. ABDOMEN: Soft, nontender. No organomegaly. EXTREMITIES: There is no edema. NEUROLOGIC: Awake, alert, follows simple command. MEDICATIONS: He is on Ecotrin 81 mg daily, insulin coverage, Lasix 40 mg daily, Lipitor 10 mg daily, metoprolol tartrate 25 mg twice a day, Lovenox 30 mg subcu daily, gabapentin 300 mg three times a day, Pepcid 40 mg at bedtime, Plavix 75 mg daily, Primacor IV had been started, Synthroid is 150 mcg daily, Tylenol p.r.n., Zestril 5 mg daily, Zofran on a p.r.n. basis. LABORATORY DATA: Shows hemoglobin 11.7, hematocrit 36, WBC 10.1, platelet is 177. His PTT is 68. Sodium 138, potassium 5, chloride 100, bicarbonate 28, BUN 48, creatinine 2.7, glucose 213, calcium 8.5, phosphorus 4.2, magnesium 1.7. Total bili 1.4, AST 41, ALT 50, alk phos is 55. LDH 391. ProBNP 938. Albumin is 3.8, cholesterol 144. Vitamin B12 at 656. Folate more than 20. TSH 6.65. Microbiology: Blood culture has been negative. Echocardiogram done yesterday shows right ventricle systolic pressure is 36, LV ejection fraction about 25%. Left ventricle mildly dilated. V/Q scan shows low probability of PE, has a venous Doppler done. There is no evidence of deep venous thrombosis. IMPRESSION AND PLAN: Coronary artery disease, history of coronary bypass surgery, hypothyroid, hypertension, ex-smoker, diabetes, and severe cardiomyopathy on echocardiography. Started on IV Primacor. May have a component of sleep apnea syndrome. Could not use CPAP. We will change the pressure to low rate. Keep head at 45 degrees. We will recommend outpatient sleep study. Gastric prophylaxis. On anticoagulation. Follow up labs in the morning. Thank you and we will follow with you. Jeb Tena MD
--- NOTE | 2018-02-15 22:59 | PN ---
DATE: 02/15/2018 SUBJECTIVE: Patient is a 67-year-old male. Patient was seen and examined at the bedside, looking comfortable. No nausea, vomiting, or diarrhea. No hematuria, no hematochezia. No swelling of the legs. No chest pain, no palpitation. No headache, no dizziness. PHYSICAL EXAMINATION: VITAL SIGNS: Temperature 98.6, heart rate 95, blood pressure 108/65, respiratory rate 18. HEENT: Head normocephalic, atraumatic. Eyes PERRLA. Extraocular muscles intact. Conjunctivae clear. Nose patent. Mucous membrane moist. NECK: Supple. No carotid bruit. No JVD or thyromegaly. CHEST: Bilaterally symmetrical. HEART: S1 and S2 positive. LUNGS: Clear to auscultation. ABDOMEN: Soft. Bowel sounds present. No organomegaly. EXTREMITIES: No clubbing. No cyanosis. LABORATORY DATA: White blood cells 10.9, hemoglobin 11.9, hematocrit 36, platelet 177. Sodium 130, potassium 5, BUN 48, creatinine 2.7. TSH 4.96 ASSESSMENT AND PLAN: Mr. Moraima Lee, 67-year-old male with no evidence of acute myocardial infarction, no evidence of acute deep vein thrombosis or pulmonary embolism, decompensated congestive heart failure, acute on chronic, secondary to systolic dysfunction; coronary artery disease, status post coronary artery bypass grafting; diabetes mellitus; hypertension; hypercholesterolemia; chronic obstructive pulmonary disease; three-vessel coronary artery disease, bypass graft 5 years ago in [facility]; hypothyroidism; diabetic neuropathy; diabetic nephropathy. Patient is admitted in [facility]. Continue gentle diuresis as renal function is tolerating, IV Primacor. Suggested cardiac catheterization. If renal function test remains stable, consider cardiac catheterization, as per rack worker. Otherwise, we will go for stress test on Saturday. We will continue present treatment. Appreciate Dr. Ramsay's input. We will follow up. Yessi Sutton MD
[2018-02-16] MEDS: Milrinone 20mg/100ml D5W 100 ML IV PRN ×2 (01:07→20:11)
[2018-02-16] MEDS: Nitroglycerin 2% Ointment Foilpak UD TOP SCH ×4 (03:23→21:29)
--- NOTE | 2018-02-16 04:41 | HP ---
The patient was seen and examined at the bedside on 02/14/2018, while resting on the bedside. CHIEF COMPLAINT: Chest pain and shortness of breath. HISTORY OF PRESENT ILLNESS: Mr. Rachael Lee is a [id number] male with history of hypertension, coronary artery disease, CABG, came to the emergency room for evaluation of worsening dyspnea throughout today. He reports associated chills and mild chest pain. The patient has mild leg swelling as well, which he states chronic. He denies any cough, sputum or weakness. He denies any fever or sick contacts, recent travel, history of asthma or pneumonia. The patient reports he takes aspirin and Plavix daily at home. The patient had oxygen saturation in the 80s on room air and states he is not on home oxygen. PAST MEDICAL HISTORY: As above. History of coronary artery bypass graft, hypertension, obesity, coronary artery disease. FAMILY HISTORY: Father and mother noncontributory. HABITS: Former smoker, quit 9 years ago. Alcohol, no; substance abuse, no. ALLERGIES: ALLERGIC TO SULFA. HOME MEDICATIONS: Ecotrin, Lipitor, Plavix, Neurontin, Synthroid, Zestril, Lopressor. REVIEW OF SYSTEMS: The patient was seen and examined on the bedside; is seen at the also. All questions answered. As per patient, having dyspnea especially on walking, sometimes getting shortness of breath, chest pain; otherwise, no chills, no fever. No nausea, vomiting, diarrhea. No abdominal pain. No cough or sputum production. PHYSICAL EXAMINATION VITAL SIGNS: Temperature 98.7, pulse 92, respiratory 16, blood pressure 128/86, pulse oximetry 100%. HEENT: Head normocephalic, atraumatic. Eyes: PERRLA. Extraocular muscles intact. Conjunctivae clear. Nose patent. Mucous membrane moist. NECK: Supple. No carotid bruit. No JVD or thyromegaly. CHEST: Bilaterally symmetrical. HEART: S1 and S2 positive. LUNGS: Clear to auscultation. ABDOMEN: Soft. Bowel sounds present. No organomegaly. EXTREMITIES: No edema, no cyanosis. NEUROLOGIC: The patient is awake, alert, and moving all four extremities. No focal deficits. LABORATORY DATA: White blood cell 11.4, hemoglobin 13.7, hematocrit 41.1, platelets 142. BUN 35, creatinine 2. Glucose 168. ASSESSMENT AND PLAN: Mr. Moraima Lee is a 67-year-old male with leukocytosis, anemia, renal insufficiency, hyperglycemia, came in to [facility] Emergency Room for dyspnea, chest pain, has history of coronary artery disease, history of coronary artery bypass graft, hypertension, hypothyroidism, hypercholesterolemia, ex-smoker, diabetes mellitus. The patient is seen by computer technical specialist and Pulmonary. Echocardiography done, the report is pending. Dr. Tena discontinued the IV heparin, placed him on the deep vein thrombosis prophylaxis. Cardiac workup pending. Outpatient need pulmonary function test to assess the lung function. May be also need sleep study, rule out obstructive sleep apnea syndrome, try to lose weight. Labs done, reviewed by me. Extremity ultrasound is done, reviewed by me. History of mild chest pain, now it is better. Diabetic neuropathy, arthritis. Works as a application security developer. D-dimer elevated, possibly acute pulmonary embolism or possibly acute congestive heart failure. The patient was on heparin and Dr. Tena discontinued that. VQ scan reviewed by me for PE. Care Analyst ordered troponin to rule out ischemia, GI and deep venous thrombosis prophylaxis. Repeat labs. We will follow. Yessi Sutton MD MTDD
[2018-02-16] MEDS: Levothyroxine 150 MCG TAB PO SCH (05:57)
[2018-02-16] MEDS ORDERED: Levothyroxine 125 MCG TAB PO SCH (06:00)
[2018-02-16 07:25] LABS: BASO # 0.02 K/mm3 (0.0-2.0); BASO % 0.2 % (0.0-3.0); EOS # 0.4 (0.0-0.7); EOS % 4.3 % (1.5-5.0); GRAN # 5.56 (1.4-6.5); GRAN % 65.8 % (50.0-68.0); HEMOGLOBIN 12.3 g/dL (14.0-18.0); LYMPH # 1.7 (1.2-3.4); LYMPH % 19.6 % (22.0-35.0); MEAN CELL VOLUME 82.4 fl (80.0-105.0); MEAN CORPUSCULAR HEMOGLOBIN 27.3 pg (25.0-35.0); MEAN CORPUSCULAR HGB CONC 33.2 g/dl (31.0-37.0); MEAN PLATELET VOLUME 10.5 fl (7.0-11.0); MONO # 0.9 (0.1-0.6); MONO % 10.1 % (1.0-6.0); RBC 4.5 10^6/uL (3.5-6.1); RED CELL DISTRIBUTION WIDTH 13.5 % (11.5-14.5); WHITE BLOOD COUNT 8.5 10^3/ul (4.5-11.0)
[2018-02-16 07:43] LABS: ALB/GLOB RATIO 1.2 (1.1-1.8); ALBUMIN 3.8 g/dL (3.0-4.8); CALCIUM 8.5 mg/dL (8.4-10.5)
[2018-02-16] MEDS: Insulin Reg-LOW-Coverage SC SCH ×4 (08:19→21:13)
[2018-02-16] MEDS: Enoxaparin 30 mg Syringe SC SCH (09:23)
--- NOTE | 2018-02-16 19:17 | PN ---
DATE: 02/16/2018 PULMONARY PROGRESS NOTE REFERRING PHYSICIAN: Yessi Sutton MD SUBJECTIVE: The patient is lying in the bed, head at 45 degrees. Night was unremarkable. Could not use BiPAP last night on Primacor drip. Overall feels better. Decreased cough and shortness of breath. No nausea. No vomiting. No diarrhea. No leg pain or leg swelling. OBJECTIVE: GENERAL: In no acute distress. VITAL SIGNS: Temperature is 98, heart rate is 89, respiratory rate is 20, blood pressure 101/54, pulse ox 98% on 2 liters nasal cannula. HEENT: Moist mucous membranes. Crowded airway. Mallampati score is 4. NECK: Supple. No JVD. LUNGS: Have a few crackles. HEART: S1 and S2. ABDOMEN: Soft, nontender. No organomegaly. EXTREMITIES: No edema. NEUROLOGICAL: Awake and alert. Follows simple command. MEDICATIONS: He is on Coreg 3.125 mg twice a day, digoxin 0.125 mg daily, Ecotrin 81 mg daily, insulin coverage, Lasix 40 mg daily, Lipitor 10 mg daily, Lovenox 30 mg subcu daily, gabapentin 300 mg three times a day, Pepcid is 40 mg at bedtime, Plavix 75 mg daily, Primacor IV drip, Synthroid 150 mcg daily, Tylenol p.r.n., Zestril 5 mg daily, Zofran p.r.n. basis. LABORATORY DATA: Shows hemoglobin 12.3, hematocrit 37.1, WBC 8.5, platelet count is 194. PTT yesterday 68. Sodium 139, potassium 4.9, chloride 99, bicarbonate is 30, BUN 55, creatinine 2.6, glucose 153, calcium 8.5, phosphorus 3.9, magnesium 1.9, AST 25, ALT 41, alkaline phosphatase is 53. Albumin 3.8. Microbiology, blood culture has been negative. IMPRESSION AND PLAN: Coronary artery disease, history of coronary artery bypass surgery, hypothyroid, hypertension, ex-smoker, diabetes, severe cardiomyopathy on Primacor drip. I had a long discussion with the patient about sleep apnea. It's relation to cardiomyopathy. Encouraged him to use CPAP. He expressed understanding and will use that. We will get outpatient attended sleep study. Continue Primacor diuretics, beta-porfirio, gastric prophylaxis, anticoagulation. Cardiology followup. Thank you and we will follow with you. Jeb Tena MD [facility] # [id number]
--- NOTE | 2018-02-16 21:07 | PN ---
DATE: 02/16/2018 REASON FOR THE CONSULTATION AND FOLLOWUP: Shortness of breath; coronary artery disease, CABG; acute decompensated congestive heart failure and chronic renal insufficiency secondary to ischemic cardiomyopathy. SUBJECTIVE: The patient denies any chest pain, shortness of breath or any palpitation. PHYSICAL EXAMINATION GENERAL: Not in any apparent distress. VITAL SIGNS: Temperature is afebrile, heart rate 69, blood pressure 101/54. HEENT: PERRLA. Extraocular muscles intact. NECK: Supple. No carotid bruits or thyromegaly. CHEST: Clear to auscultation. HEART: S1 and S2 regular. ABDOMEN: Soft. EXTREMITIES: Clubbing and cyanosis negative. LABORATORY DATA: WBC 8.5, hemoglobin 12.3, hematocrit 37.1, platelet count 194. Chemistry shows sodium 130, potassium 4.9, chloride 99, carbon dioxide 30, anion gap of 15, BUN 55, creatinine 2.6. IMPRESSION: Acute decompensated congestive heart failure in 67-year-old male with past medical history significant for coronary artery disease status post coronary artery bypass graft 5 years ago, admitted with acute shortness of breath, decompensated congestive heart failure, V/Q scan is negative for low probability. Echo shows a fairly decreased left ventricular function. Venous Duplex negative for deep venous thrombosis. History of coronary artery disease as mentioned five years ago with three-vessel bypass at [facility]. Echo shows ejection fraction of 25%, trace mitral regurgitation, trace aortic regurgitation, mild to moderate valvular aortic stenosis, moderate mitral regurgitation, mild tricuspid regurgitation with right ventricular systolic pressure of 36. RECOMMENDATION: The patient is scheduled for cardiac catheterization tomorrow. The patient refused and wanted to go home. Discussed with . We will start heart failure therapy, change Lasix to p.o., continue aspirin, changed metoprolol to Coreg and low dose digoxin Saturday, Saturday and Saturday. Discontinue Primacor tomorrow. Possible discharge home. The patient wanted to go home and discussed with . Does not want cardiac catheterization and opted for medical treatment. For now, wanted to go home. Possible discharge home in the a.m. We will adjust the medication including nitrates to p.o. and Lasix p.o. We will change to Coreg and discontinue milrinone tomorrow at 7. Possible discharge home tomorrow. Thank you, Dr. Sutton, for providing us the opportunity in taking care of the patient, Moraima Lee. Jeb Ramsay MD
[2018-02-17] MEDS: Nitroglycerin 2% Ointment Foilpak UD TOP SCH ×2 (03:08→09:29)
[2018-02-17] MEDS: Levothyroxine 150 MCG TAB PO SCH (05:19)
--- NOTE | 2018-02-17 06:43 | CP.PCM.PN ---
Subjective - Date & Time of Evaluation Date of Evaluation: 02/17/18 Time of Evaluation: 06:25 - Subjective Subjective: Awake,lying in bed, mild shortness of breath Reason for consultation: Cardiac evaluation for shortness of breath.history of Coronary artery disease with bypass grafting 5 years ago at [facility]3], hypertension, hypothyroidism, diabetes, diabetic neuropathy,arthritis, hyperlipidemia Seen and examined by me and Dr. Ramsay Objective - Vital Signs/Intake and Output Vital Signs (last 24 hours): Temp Pulse Resp BP Pulse Ox 98.3 F 98 H 18 121/71 96 02/17/18 05:50 02/17/18 05:50 02/17/18 05:50 02/17/18 05:50 02/17/18 05:50 Intake and Output: 02/16/18 02/17/18 18:59 06:59 Intake Total 360 285 Output Total 900 350 Balance -540 -65 - Medications Medications: Current Medications Acetaminophen (Tylenol 325mg Tab) 650 mg PO Q4H PRN PRN Reason: Pain, Mild (1-3) Last Admin: 02/17/18 01:23 Dose: 650 mg Aspirin (Ecotrin) 81 mg PO DAILY [facility] Last Admin: 02/16/18 09:21 Dose: 81 mg Atorvastatin Calcium (Lipitor) 10 mg PO DIN [facility] Last Admin: 02/16/18 16:51 Dose: 10 mg Carvedilol (Coreg) 3.125 mg PO BID [facility] Last Admin: 02/16/18 17:32 Dose: 3.125 mg Clopidogrel Bisulfate (Plavix) 75 mg PO DAILY [facility] Last Admin: 02/16/18 09:22 Dose: 75 mg Digoxin (Digoxin) 0.125 mg PO MoWeFr@1400 [facility] Enoxaparin Sodium (Lovenox) 30 mg SC DAILY [facility] PRN Reason: Protocol Last Admin: 02/16/18 09:23 Dose: 30 mg Famotidine (Pepcid) 40 mg PO HS [facility] Last Admin: 02/16/18 21:14 Dose: 40 mg Furosemide (Lasix) 40 mg PO DAILY [facility] Last Admin: 02/16/18 09:22 Dose: 40 mg Gabapentin (Neurontin) 300 mg PO TID [facility] PRN Reason: Protocol Last Admin: 02/16/18 17:32 Dose: 300 mg Milrinone Lactate/Dextrose (Primacor 20mg/100ml D5w) 100 mls @ 5.383 mls/hr IV .[id number] PRN; Protocol; 0.2 MCG/KG/MIN PRN Reason: TITRATE PER MD ORDER Stop: 02/17/18 07:00 Last Admin: 02/16/18 20:11 Dose: 0.2 mcg/kg/min, 5.383 mls/hr Insulin Human Regular (Humulin R Low) 0 units SC ACHS [facility] PRN Reason: Protocol Last Admin: 02/16/18 21:13 Dose: Not Given Levothyroxine Sodium (Synthroid) 150 mcg PO 0600 [facility] Last Admin: 02/17/18 05:19 Dose: 150 mcg Lisinopril (Zestril) 5 mg PO DAILY [facility] Last Admin: 02/15/18 09:11 Dose: 5 mg Nitroglycerin (Nitro-Bid 2% Oint) 0.5 ea TOP Q6H [facility] Last Admin: 02/17/18 03:08 Dose: Not Given Ondansetron HCl (Zofran Inj) 4 mg IVP Q4H PRN PRN Reason: Nausea/Vomiting - Labs Labs: 02/16/18 06:30 02/16/18 06:30 PT 12.2 SECONDS (9.4-12.5) 02/14/18 01:50 INR 1.07 (0.93-1.08) 02/14/18 01:50 APTT 68.4 Seconds (25.1-36.5) H 02/14/18 16:07 - Constitutional Appears: No Acute Distress - Head Exam Head Exam: NORMOCEPHALIC - Eye Exam Eye Exam: Normal appearance - ENT Exam ENT Exam: Mucous Membranes Moist - Respiratory Exam Respiratory Exam: Decreased Breath Sounds, NORMAL BREATHING PATTERN - Cardiovascular Exam Cardiovascular Exam: REGULAR RHYTHM, +S1, +S2 - GI/Abdominal Exam GI & Abdominal Exam: Soft, Normal Bowel Sounds - Exam Additional comments: continent/urinal - Extremities Exam Extremities Exam: Normal Capillary Refill Additional comments: 1+ edema right leg - Neurological Exam Neurological Exam: Alert, Awake, Oriented x3 - Psychiatric Exam Psychiatric exam: Normal Affect, Normal Mood - Skin Skin Exam: Intact, Normal Color, Warm Assessment and Plan - Assessment and Plan (Free Text) Assessment: A 67 year old male who came in 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 Claimed to have mild chest pain. Also complaints of bilateral leg pain, pain to touch to lower extremities . History of hypertension, ex-smoker, CAD with bypass grafting (CABG 5 years ago at [facility]).hypothyroidism, diabetes, diabetic neuropathy,arthritis,hyperlipidemia. Prior to admission, walked a lot and with no problems, worked as a information security consultant. Work up negative for pulmonary embolism ,coronary ischemia and DVT. Acute decompensated congestive heart failure, LVEF on Echo 25%.Mild AR,moderate MR,moderate aortic stenosis,Severely impaired systolic function. Started on Primacor drip. Plan: Refusing cardiac catheterization and Stress test Instructed to follow up with his Technology Sales Consultant at [facility] Will discontinue Primacor drip May discharge to home Heart rate and blood pressure controlled Less short of breath compared to baseline.able to lie down in bed with one pillow, controlled CHF. On ASA 81 mg daily,Coreg 3.125 mg BID,Lipitor 10 mg daily Digoxin 0.125 mg 3 x a week (MWF),Lovenox 30 mg daily, Plavix 75 mg daily, Lasix 40 mg daily,Lisinopril 5 mg daily, Nitrobid ointment top every 6 hours Follow up with PMD and Technology Sales Consultant post discharge. Plan and treatment discussed with Dr. Ramsay
[2018-02-17 07:28] LABS: BASO # 0.03 K/mm3 (0.0-2.0); BASO % 0.4 % (0.0-3.0); EOS # 0.4 (0.0-0.7); EOS % 4.3 % (1.5-5.0); GRAN # 5.6 (1.4-6.5); GRAN % 68.3 % (50.0-68.0); HEMOGLOBIN 12.5 g/dL (14.0-18.0); LYMPH # 1.3 (1.2-3.4); LYMPH % 15.9 % (22.0-35.0); MEAN CELL VOLUME 83.1 fl (80.0-105.0); MEAN CORPUSCULAR HEMOGLOBIN 27.8 pg (25.0-35.0); MEAN CORPUSCULAR HGB CONC 33.4 g/dl (31.0-37.0); MEAN PLATELET VOLUME 9.6 fl (7.0-11.0); MONO # 0.9 (0.1-0.6); MONO % 11.1 % (1.0-6.0); RBC 4.5 10^6/uL (3.5-6.1); RED CELL DISTRIBUTION WIDTH 13.3 % (11.5-14.5); WHITE BLOOD COUNT 8.2 10^3/ul (4.5-11.0)
[2018-02-17] MEDS: Insulin Reg-LOW-Coverage SC SCH ×4 (08:00→22:00)
[2018-02-17] MEDS ORDERED: Sod Polystyrene Sulf 15 gm/60 ml Susp PO ONE ×2 (09:12→16:41)
--- NOTE | 2018-02-17 09:25 | PN ---
DATE: 02/16/2018 SUBJECTIVE: Patient is a 67-year-old male. Patient is seen and examined at the bedside, looking comfortable, complaining about pain in the left foot. No nausea or vomiting. No diarrhea. No headache. No dizziness. No chest pain. No palpitation. No fever. No chills. PHYSICAL EXAMINATION: VITAL SIGNS: Temperature 98, pulse 55, blood pressure 125/69, respiratory rate 18. HEENT: Head: Normocephalic, atraumatic. Eyes: PERRLA. Extraocular muscles are intact. Conjunctivae clear. Nose: Patent. Mucous membrane moist. NECK: Supple. No carotid bruit, JVD, or thyromegaly. CHEST: Bilaterally symmetrical. HEART: S1 and S2 positive. LUNGS: Clear to auscultation. ABDOMEN: Soft. Bowel sounds present. No organomegaly. EXTREMITIES: No edema. No cyanosis. Left foot is tender. Otherwise, no edema, no cyanosis. MEDICATIONS: Coreg, digoxin, Ecotrin, insulin, Lasix, Lipitor, Lovenox, Neurontin, Nitro-Bid, Pepcid, Plavix, Primacor drip, Synthroid, Tylenol, Zestril, Zofran. LABORATORY DATA: White blood cell is 8.5, hemoglobin 11.3, hematocrit 37.1, platelets 194. Sodium 139, potassium 4.9, BUN 55, creatinine 2.6, glucose 226. ASSESSMENT AND PLAN: Mr. Moraima Lee is a 67-year-old male with a history of leukocytosis, improved; anemia; renal insufficiency; hyperglycemia; proteinuria; hematuria; rule out gouty arthritis of the left foot, Podiatry consult called; coronary artery disease; history of coronary bypass surgery; hypothyroidism; hypertension; ex-smoker; severe cardiomyopathy on echocardiography, is on IV Primacor. Has a component of sleep apnea syndrome, could not use CPAP, noncompliant. According to Dr. Tena, he will change the pressure rate. Continue current treatment. Gastrointestinal and deep vein thrombosis prophylaxis. Need sleep study as outpatient. Repeat labs. Podiatry consult called. We will follow up. Yessi Sutton MD
[2018-02-17] MEDS: Enoxaparin 30 mg Syringe SC SCH (09:39)
--- NOTE | 2018-02-17 11:12 | CP.PCM.CON ---
<Ginny Pearson - Last Filed: 02/17/18 11:07> History of Present Illness - History of Present Illness History of Present Illness: Podiatry Consult note: Dr. Easley/Dr. Potter 67 year old male with PMHx of hypertension, hypothyroidism, diabetes, diabetic neuropathy,arthritis,hyperlipidemia was seen and evaluated at bedside for left dorsal foot pain. Patient reports that he was admitted to the hospital due to SOB which then transitioned to mild chest pain. Reports that he since the admission his symptoms have gotten better. Reports that he had pain in his foot for a long time. Reports that he followed up with Dr. Camargo who gave him a steroid shot which helped him relieve the pain. Reports that it worked for about 6 months but the pain has returned. States that his doctor has retired and no longer practices so he has not been able to see him. Denies of any recent injury to the left foot. Denies of any trauma to the foot. Denies of having any recent F/N/V/C. No other pedal complains at this time. Review of Systems - Constitutional Constitutional: As Per HPI Past Patient History - Infectious Disease Hx of Infectious Diseases: None - Past Social History Smoking Status: Former Smoker - CARDIAC Hx Cardiac Disorders: Yes (CAD, CABG) Hx Hypercholesterolemia: Yes Hx Hypertension: Yes - PULMONARY Hx Respiratory Disorders: No - NEUROLOGICAL Hx Neurological Disorder: No - HEENT Hx HEENT Problems: No Hx Cataracts: Yes (WITH SURGERY) - RENAL Hx Chronic Kidney Disease: No - ENDOCRINE/METABOLIC Hx Endocrine Disorders: Yes Hx Diabetes Mellitus Type 2: Yes (NEUROPATHY) Hx Hypothyroidism: Yes - HEMATOLOGICAL/ONCOLOGICAL Hx Blood Disorders: No - INTEGUMENTARY Hx Dermatological Problems: No - MUSCULOSKELETAL/RHEUMATOLOGICAL Hx Musculoskeletal Disorders: Yes Hx Arthritis: Yes Hx Back Pain: Yes Hx Falls: No Hx Fractures: Yes (L RIB) Other/Comment: L THUMB PARTIAL AMPUTATION S/P INJURY - GASTROINTESTINAL Hx Gastrointestinal Disorders: No - GENITOURINARY/GYNECOLOGICAL Hx Genitourinary Disorders: No - PSYCHIATRIC Hx Psychophysiologic Disorder: No Hx Substance Use: No - SURGICAL HISTORY Hx Surgeries: Yes Hx Cardiac Catheterization: Yes Hx Coronary Stent: Yes Hx Open Heart Surgery: Yes (CABG) Other/Comment: CATARACT SURGERY, TONSILLECTOMY - ANESTHESIA Hx Anesthesia: Yes Hx Anesthesia Reactions: No Hx Malignant Hyperthermia: No Meds Allergies/Adverse Reactions: Allergies Allergy/AdvReac Type Severity Reaction Status Date / Time Sulfa (Sulfonamide Allergy ANAPHYLAXIS Verified 02/14/18 01:43 Antibiotics) - Medications Medications: Current Medications Acetaminophen (Tylenol 325mg Tab) 650 mg PO Q4H PRN PRN Reason: Pain, Mild (1-3) Last Admin: 02/17/18 01:23 Dose: 650 mg Aspirin (Ecotrin) 81 mg PO DAILY [facility] Last Admin: 02/17/18 09:38 Dose: 81 mg Atorvastatin Calcium (Lipitor) 10 mg PO DIN [facility] Last Admin: 02/16/18 16:51 Dose: 10 mg Carvedilol (Coreg) 3.125 mg PO BID [facility] Last Admin: 02/17/18 09:38 Dose: 3.125 mg Clopidogrel Bisulfate (Plavix) 75 mg PO DAILY [facility] Last Admin: 02/17/18 09:38 Dose: 75 mg Digoxin (Digoxin) 0.125 mg PO MoWeFr@1400 [facility] Enoxaparin Sodium (Lovenox) 30 mg SC DAILY [facility] PRN Reason: Protocol Last Admin: 02/17/18 09:39 Dose: 30 mg Famotidine (Pepcid) 40 mg PO HS [facility] Last Admin: 02/16/18 21:14 Dose: 40 mg Furosemide (Lasix) 40 mg PO DAILY [facility] Last Admin: 02/17/18 09:38 Dose: 40 mg Gabapentin (Neurontin) 300 mg PO TID [facility] PRN Reason: Protocol Last Admin: 02/17/18 09:38 Dose: 300 mg Insulin Human Regular (Humulin R Low) 0 units SC ACHS [facility] PRN Reason: Protocol Last Admin: 02/17/18 08:00 Dose: 1 unit Isosorbide Mononitrate (Imdur Er) 30 mg PO DAILY [facility] Last Admin: 02/17/18 10:13 Dose: 30 mg Levothyroxine Sodium (Synthroid) 150 mcg PO 0600 [facility] Last Admin: 02/17/18 05:19 Dose: 150 mcg Lisinopril (Zestril) 5 mg PO DAILY [facility] Last Admin: 02/15/18 09:11 Dose: 5 mg Ondansetron HCl (Zofran Inj) 4 mg IVP Q4H PRN PRN Reason: Nausea/Vomiting Physical Exam - Constitutional Appears: Well, Non-toxic, No Acute Distress - Extremities Exam Additional comments: Left LE focused exam VASC: DP/PT pulses are palpable 2/4, Cap refill time: < 3 sec to all digits, Temp gradient: warm to cool from proximal to distal, no pitting or non--pitting edema noted DERM: no open lesion, <2 cm erythema noted on the dorsum of the left foot localized to the dorsal exostosis area, no clinical suspicion of active infection NEURO: Protective sensation grossly diminished ORTHO: Approx 2.5 cm x 2.5 cm exostosis noted at the level of medial tarso- metatarsal joint, pain on palpation surrounding the exostosis, pain during 1st ray ROM, mild crepitus during PROM at the 1st metatarsal-cunieform joint, Lisfranc's ligament injury questionable during physical exam due to positive for pain while performing piano antunez test - Neurological Exam Neurological exam: Alert, Oriented x3 - Psychiatric Exam Psychiatric exam: Normal Affect, Normal Mood Results - Vital Signs Recent Vital Signs: Last Vital Signs Temp 98.3 F 02/17/18 05:50 Pulse 98 H 02/17/18 09:38 Resp 18 02/17/18 05:50 BP 127/72 02/17/18 09:38 Pulse Ox 96 02/17/18 05:50 - Labs Result Diagrams: 02/17/18 07:06 02/17/18 07:06 Labs: Laboratory Results - last 24 hr 02/15/18 02/16/18 02/16/18 06:00 11:07 16:24 WBC RBC Hgb Hct MCV MCH MCHC RDW Plt Count MPV Gran % Lymph % (Auto) Weston % (Auto) Eos % (Auto) Baso % (Auto) Gran # Lymph # (Auto) Weston # (Auto) Eos # (Auto) Baso # (Auto) Sodium Potassium Chloride Carbon Dioxide Anion Gap BUN Creatinine Est GFR ( Amer) Est GFR (Non-Af Amer) POC Glucose (mg/dL) 229 H 219 H Random Glucose Hemoglobin A1c 9.6 H Calcium 02/16/18 02/17/18 02/17/18 21:09 07:06 07:06 WBC 8.2 RBC 4.50 Hgb 12.5 L Hct 37.4 L MCV 83.1 MCH 27.8 MCHC 33.4 RDW 13.3 Plt Count 211 MPV 9.6 Gran % 68.3 H Lymph % (Auto) 15.9 L Weston % (Auto) 11.1 H Eos % (Auto) 4.3 Baso % (Auto) 0.4 Gran # 5.60 Lymph # (Auto) 1.3 Weston # (Auto) 0.9 H Eos # (Auto) 0.4 Baso # (Auto) 0.03 Sodium 139 Potassium 5.8 H* Chloride 99 Carbon Dioxide 32 Anion Gap 14 BUN 56 H Creatinine 2.3 H Est GFR ( Amer) 34 Est GFR (Non-Af Amer) 28 POC Glucose (mg/dL) 291 H Random Glucose 219 H Hemoglobin A1c Calcium 9.0 Assessment & Plan - Assessment and Plan (Free Text) Assessment: 67 year old male with extensive PMHx was evaluated for left foot exostosis pain vs. lisfranc ligament injury Plan: Patient seen and evaluated with attending Dr. Easely Labs, vitals and charts reviewed X-rays of the left foot ordered Pain most likely due to arthritic tarso-metatarsal joint with exostosis irritating in shoe Will follow up with x-rays Thank you for the podiatry consult and allowing to take part in patient care Podiatry will follow patient while in-house - Date & Time Date: 02/17/18 Time: 11:22 <Palmer Easley - Last Filed: 02/18/18 09:51> Meds - Medications Medications: Current Medications Acetaminophen (Tylenol 325mg Tab) 650 mg PO Q4H PRN PRN Reason: Pain, Mild (1-3) Last Admin: 02/17/18 01:23 Dose: 650 mg Allopurinol (Zyloprim) 300 mg PO DAILY [facility] Aspirin (Ecotrin) 81 mg PO DAILY [facility] Last Admin: 02/17/18 09:38 Dose: 81 mg Atorvastatin Calcium (Lipitor) 10 mg PO DIN [facility] Last Admin: 02/17/18 17:54 Dose: 10 mg Carvedilol (Coreg) 3.125 mg PO BID [facility] Last Admin: 02/17/18 17:54 Dose: 3.125 mg Clopidogrel Bisulfate (Plavix) 75 mg PO DAILY [facility] Last Admin: 02/17/18 09:38 Dose: 75 mg Colchicine (Colocrys) 0.6 mg PO ONCE ONE Stop: 02/18/18 13:01 Colchicine (Colocrys) 0.6 mg PO DAILY [facility] Stop: 02/21/18 23:59 Digoxin (Digoxin) 0.125 mg PO MoWeFr@1400 [facility] Last Admin: 02/17/18 14:57 Dose: 0.125 mg Enoxaparin Sodium (Lovenox) 30 mg SC DAILY [facility] PRN Reason: Protocol Last Admin: 02/17/18 09:39 Dose: 30 mg Famotidine (Pepcid) 40 mg PO BID [facility] Furosemide (Lasix) 40 mg PO DAILY [facility] Last Admin: 02/17/18 09:38 Dose: 40 mg Gabapentin (Neurontin) 300 mg PO TID [facility] PRN Reason: Protocol Last Admin: 02/17/18 17:54 Dose: 300 mg Insulin Human Regular (Humulin R Low) 0 units SC ACHS [facility] PRN Reason: Protocol Last Admin: 02/18/18 07:51 Dose: Not Given Isosorbide Mononitrate (Imdur Er) 30 mg PO DAILY [facility] Last Admin: 02/17/18 10:13 Dose: 30 mg Levothyroxine Sodium (Synthroid) 150 mcg PO 0600 [facility] Last Admin: 02/18/18 08:51 Dose: 150 mcg Ondansetron HCl (Zofran Inj) 4 mg IVP Q4H PRN PRN Reason: Nausea/Vomiting Sodium Polystyrene Sulfonate (Kayexalate Susp) 30 gm PO ONCE ONE Stop: 02/18/18 14:01 Results - Vital Signs Recent Vital Signs: Last Vital Signs Temp 98.2 F 02/18/18 06:00 Pulse 82 02/18/18 06:00 Resp 20 02/18/18 06:00 BP 121/69 02/18/18 06:00 Pulse Ox 96 02/18/18 06:00 - Labs Result Diagrams: 02/18/18 07:00 02/18/18 07:00 Labs: Laboratory Results - last 24 hr 02/15/18 02/17/18 02/17/18 06:00 07:16 11:48 WBC RBC Hgb Hct MCV MCH MCHC RDW Plt Count MPV Sodium Potassium Chloride Carbon Dioxide Anion Gap BUN Creatinine Est GFR ( Amer) Est GFR (Non-Af Amer) POC Glucose (mg/dL) 187 H 238 H Random Glucose Hemoglobin A1c 9.6 H Uric Acid Calcium Total Bilirubin AST ALT Alkaline Phosphatase Total Protein Albumin Globulin Albumin/Globulin Ratio 02/17/18 02/17/18 02/17/18 13:20 16:17 21:22 WBC RBC Hgb Hct MCV MCH MCHC RDW Plt Count MPV Sodium 138 Potassium 5.6 H* Chloride 98 Carbon Dioxide 31 Anion Gap 15 BUN 52 H Creatinine 2.1 H Est GFR ( Amer) 38 Est GFR (Non-Af Amer) 31 POC Glucose (mg/dL) 178 H 172 H Random Glucose 251 H Hemoglobin A1c Uric Acid Calcium 8.9 Total Bilirubin AST ALT Alkaline Phosphatase Total Protein Albumin Globulin Albumin/Globulin Ratio 02/18/18 02/18/18 02/18/18 07:00 07:00 07:30 WBC 7.9 RBC 4.54 Hgb 12.3 L Hct 37.5 L MCV 82.6 MCH 27.1 MCHC 32.8 RDW 13.3 Plt Count 203 MPV 9.5 Sodium 139 Potassium 5.8 H* Chloride 97 L Carbon Dioxide 34 H Anion Gap 14 BUN 53 H Creatinine 2.1 H Est GFR ( Amer) 38 Est GFR (Non-Af Amer) 31 POC Glucose (mg/dL) Random Glucose 173 H Hemoglobin A1c Uric Acid 12.0 H Calcium 8.7 Total Bilirubin 0.6 AST 33 ALT 34 Alkaline Phosphatase 57 Total Protein 7.4 Albumin 4.0 Globulin 3.4 Albumin/Globulin Ratio 1.2 Attending/Attestation - Attestation I have personally seen and examined this patient.: Yes I have fully participated in the care of the patient.: Yes I have reviewed all pertinent clinical information: Yes
[2018-02-17 14:04] LABS: CALCIUM 8.9 mg/dL (8.4-10.5)
[2018-02-17] MEDS: Digoxin 125 mcg (0.125 mg) Tab PO SCH (14:57)
--- NOTE | 2018-02-17 22:49 | PN ---
DATE: 02/17/2018 PULMONARY PROGRESS NOTE: REFERRING PHYSICIAN: Yessi Sutton MD. SUBJECTIVE: He is lying in the bed, head at 45 degrees. Night was unremarkable. Feels much better. Could not use CPAP last night. No nausea. No vomiting. No diarrhea. No leg pain or leg swelling. PHYSICAL EXAMINATION: GENERAL: In no acute distress. VITAL SIGNS: Temperature is 98, heart rate 82, respiratory rate is 20, blood pressure 105/65, pulse ox 98% on 2 liters nasal cannula. HEENT: Moist mucous membranes. Crowded airway. Mallampati score is 4. NECK: Supple. No JVD. LUNGS: Have a fair airflow with rhonchi. HEART: S1 and S2. ABDOMEN: Soft. Nontender. No organomegaly. EXTREMITIES: No edema. NEUROLOGICAL: Awake and alert. Follows simple command. MEDICATIONS: He is on Coreg 3.125 mg twice a day, digoxin 0.125 mg daily, Ecotrin 81 mg daily, insulin coverage, 30 mg daily, Lasix 40 mg daily, Lipitor 10 mg daily, Lovenox 30 mg subcu daily, Neurontin 300 mg three times a day, Pepcid 40 mg twice a day, Plavix 75 mg daily, Synthroid 150 mcg daily, Tylenol p.r.n., Zestril 5 mg daily, and Zofran p.r.n. basis. LABORATORY DATA: Shows hemoglobin 12.5, hematocrit 37.4, WBC 8.2, platelet is 211. Sodium 138, potassium 4.6, chloride 98, bicarbonate 31, BUN 52, creatinine 2.1, glucose 251, calcium 8.9. Microbiology, blood culture has been negative. IMPRESSION AND PLAN: Severe cardiomyopathy, pulmonary hypertension, may have sleep apnea syndrome, hypothyroid, hypertension, ex-smoker, diabetes. Primacor has been discontinued. Pulmonary point of view, doing okay. Encourage BiPAP use. Keep head at 45 degrees. Spoke to the patient about sleep apnea and its relation to cardiomyopathy. Urged him to have sleep study upon discharge as an outpatient. Cardiology followup. Thank you and we will follow with you. Jeb Tena MD
--- NOTE | 2018-02-17 23:34 | PN ---
DATE: 02/17/2018 SUBJECTIVE: The patient was seen and examined at bedside. Potassium is high, got 2 bottles of Kayexalate. Repeat stat potassium level as per Dr. Ramsay. Dr. Ramsay offered the patient stress test and catheterization, the patient refused. No fevers. No chills. No nausea, vomiting or diarrhea. No hematuria or hematochezia. No swelling of the leg. No headache, no dizziness. PHYSICAL EXAMINATION: VITAL SIGNS: Temperature is 98.3, pulse 98, respiratory rate 18, blood pressure 120/71, pulse oximetry 96. HEENT: Head normocephalic, atraumatic. Eyes PERRLA. Extraocular muscles intact. Conjunctivae clear. Nose patent. Mucous membrane moist. NECK: Supple. No carotid bruit. No JVD or thyromegaly. CHEST: Bilaterally symmetrical. HEART: S1 and S2 positive. LUNGS: Clear to auscultation. ABDOMEN: Soft. Bowel sounds present. No organomegaly. EXTREMITIES: No edema. No cyanosis. NEUROLOGIC: The patient is awake and alert. Moving all 4 extremities. No focal deficit. MEDICATIONS: Tylenol, Ecotrin, Lipitor, Plavix, Lovenox, Pepcid, Neurontin, Primacor, insulin, Synthroid, Zestril. LABORATORY DATA: White blood cells 8.5, hemoglobin 12.3, hematocrit 37.1, platelets 194. Sodium 139, potassium 4.9, BUN 55, creatinine 2.6, glucose 153. ASSESSMENT AND PLAN: Mr. Moraima Lee is a [id number] male with anemia, renal insufficiency, hyperglycemia, came with sudden onset of shortness of breath with chest pain, history of hypertension, ex-smoker, coronary artery disease with bypass graft, coronary artery bypass graft 5 years ago at this medical center, hypothyroidism, diabetic neuropathy, diabetic nephropathy, arthritis, hypercholesterolemia, used to walk a lot without dyspnea, now cannot walk because of dyspnea. Workup negative for pulmonary embolism. The patient has acute decompensated congestive heart failure, left ventricle ejection fraction on echo is 25%, impaired systolic function, was getting Primacor drip, refusing cardiac catheterization and stress test, wants to follow up with his own mask former; hyperkalemia, got Kayexalate. Presently on aspirin, digoxin, Plavix and Nitrobid. Appreciated Dr. Ramsay's input. Discussion done with the patient and nursing staff, and nurse practitioner Jing. Educated , he will think about testing . Repeat labs. We will follow up. Yessi Sutton MD [id number]
[2018-02-18] MEDS: Levothyroxine 150 MCG TAB PO SCH ×2 (06:53→08:51)
--- NOTE | 2018-02-18 06:53 | CP.PCM.PN ---
Subjective - Date & Time of Evaluation Date of Evaluation: 02/18/18 Time of Evaluation: 06:20 - Subjective Subjective: Awake,lying in bed, mild shortness of breath Reason for consultation: Cardiac evaluation for shortness of breath.history of Coronary artery disease with bypass grafting [address] [facility], hypertension, hypothyroidism, diabetes, diabetic neuropathy,arthritis, hyperlipidemia Seen and examined by me and Dr. Ramsay Objective - Vital Signs/Intake and Output Vital Signs (last 24 hours): Temp Pulse Resp BP Pulse Ox 98.5 F 82 20 105/65 98 02/17/18 18:00 02/17/18 18:00 02/17/18 18:00 02/17/18 18:00 02/17/18 18:00 Intake and Output: 02/17/18 02/18/18 18:59 06:59 Intake Total 480 240 Output Total 500 Balance -20 240 - Medications Medications: Current Medications Acetaminophen (Tylenol 325mg Tab) 650 mg PO Q4H PRN PRN Reason: Pain, Mild (1-3) Last Admin: 02/17/18 01:23 Dose: 650 mg Aspirin (Ecotrin) 81 mg PO DAILY [facility] Last Admin: 02/17/18 09:38 Dose: 81 mg Atorvastatin Calcium (Lipitor) 10 mg PO DIN [facility] Last Admin: 02/17/18 17:54 Dose: 10 mg Carvedilol (Coreg) 3.125 mg PO BID [facility] Last Admin: 02/17/18 17:54 Dose: 3.125 mg Clopidogrel Bisulfate (Plavix) 75 mg PO DAILY [facility] Last Admin: 02/17/18 09:38 Dose: 75 mg Digoxin (Digoxin) 0.125 mg PO MoWeFr@1400 [facility] Last Admin: 02/17/18 14:57 Dose: 0.125 mg Enoxaparin Sodium (Lovenox) 30 mg SC DAILY [facility] PRN Reason: Protocol Last Admin: 02/17/18 09:39 Dose: 30 mg Famotidine (Pepcid) 40 mg PO BID [facility] Furosemide (Lasix) 40 mg PO DAILY [facility] Last Admin: 02/17/18 09:38 Dose: 40 mg Gabapentin (Neurontin) 300 mg PO TID [facility] PRN Reason: Protocol Last Admin: 02/17/18 17:54 Dose: 300 mg Insulin Human Regular (Humulin R Low) 0 units SC ACHS [facility] PRN Reason: Protocol Last Admin: 02/17/18 22:00 Dose: Not Given Isosorbide Mononitrate (Imdur Er) 30 mg PO DAILY [facility] Last Admin: 02/17/18 10:13 Dose: 30 mg Levothyroxine Sodium (Synthroid) 150 mcg PO 0600 [facility] Last Admin: 02/17/18 05:19 Dose: 150 mcg Lisinopril (Zestril) 5 mg PO DAILY [facility] Last Admin: 02/15/18 09:11 Dose: 5 mg Ondansetron HCl (Zofran Inj) 4 mg IVP Q4H PRN PRN Reason: Nausea/Vomiting - Labs Labs: 02/17/18 07:06 02/17/18 13:20 PT 12.2 SECONDS (9.4-12.5) 02/14/18 01:50 INR 1.07 (0.93-1.08) 02/14/18 01:50 APTT 68.4 Seconds (25.1-36.5) H 02/14/18 16:07 - Constitutional Appears: No Acute Distress - Eye Exam Eye Exam: Normal appearance - ENT Exam ENT Exam: Mucous Membranes Moist - Respiratory Exam Respiratory Exam: Clear to Ausculation Bilateral, NORMAL BREATHING PATTERN - Cardiovascular Exam Cardiovascular Exam: +S1, +S2 - GI/Abdominal Exam GI & Abdominal Exam: Soft, Normal Bowel Sounds - Extremities Exam Additional comments: left dorsal foot pain, right leg less edema - Neurological Exam Neurological Exam: Alert, Awake, Oriented x3 - Psychiatric Exam Psychiatric exam: Normal Affect, Normal Mood - Skin Skin Exam: Intact, Normal Color, Warm Assessment and Plan - Assessment and Plan (Free Text) Assessment: A 67 year old male who came in to the ER due 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 Claimed to have mild chest pain. Also complaints of bilateral leg pain, pain to touch to lower extremities . History of hypertension, ex-smoker, CAD with bypass grafting (CABG 5 years ago at [facility] [place] [place]).hypothyroidism, diabetes, diabetic neuropathy,arthritis,hyperlipidemia. Prior to admission, walked a lot and with no problems, worked as a firewall security engineer. Work up negative for pulmonary embolism ,coronary ischemia and DVT. Acute decompensated congestive heart failure, LVEF on Echo 25%.Mild AR,moderate MR,moderate aortic stenosis,Severely impaired systolic function. Started on Primacor drip. Plan: Agreed to have Stress Test Elevated potassium yesterday and was given Kayexalate Off Primacor drip Denies shortness of breath,feels better Podiatry on consult for left dorsal foot pain Heart rate and blood pressure controlled Less short of breath compared to baseline.able to lie down in bed with one pillow, controlled CHF. On ASA 81 mg daily,Coreg 3.125 mg BID,Lipitor 10 mg daily Digoxin 0.125 mg 3 x a week (MWF),Lovenox 30 mg daily, Plavix 75 mg daily, Lasix 40 mg daily,Lisinopril 5 mg daily, Nitrobid ointment top every 6 hours Will follow up Plan and treatment discussed with Dr. Ramsay
[2018-02-18 07:22] LABS: HEMOGLOBIN 12.3 g/dL (14.0-18.0); MEAN CELL VOLUME 82.6 fl (80.0-105.0); MEAN CORPUSCULAR HEMOGLOBIN 27.1 pg (25.0-35.0); MEAN CORPUSCULAR HGB CONC 32.8 g/dl (31.0-37.0); MEAN PLATELET VOLUME 9.5 fl (7.0-11.0); RBC 4.54 10^6/uL (3.5-6.1); RED CELL DISTRIBUTION WIDTH 13.3 % (11.5-14.5); WHITE BLOOD COUNT 7.9 10^3/ul (4.5-11.0)
[2018-02-18 07:37] LABS: ALB/GLOB RATIO 1.2 (1.1-1.8); CALCIUM 8.7 mg/dL (8.4-10.5)
[2018-02-18] MEDS: Insulin Reg-LOW-Coverage SC SCH ×4 (07:51→22:00)
[2018-02-18] MEDS ORDERED: Sod Polystyrene Sulf 15 gm/60 ml Susp PO ONE ×2 (08:41→14:00)
--- NOTE | 2018-02-18 09:30 | RAD ---
PROCEDURE: Left Foot Radiographs. HISTORY: rupal exostosis tarso-metatarsal joint/pain COMPARISON: None. FINDINGS: BONES: No fracture. Plantar calcaneal spur. There is a bony exostosis arising from the dorsal aspect of the foot likely from the medial or middle cuneiform. It is best visualized in lateral projection. JOINTS: Normal. SOFT TISSUES: Normal. OTHER FINDINGS: None. IMPRESSION: No acute fracture. Bony exostosis arising from medial and middle cuneiform. Plantar calcaneal spur.
[2018-02-18] MEDS: Enoxaparin 30 mg Syringe SC SCH (10:42)
--- NOTE | 2018-02-18 12:05 | CP.PCM.PN ---
<Edelmira Pearson - Last Filed: 02/18/18 12:02> Subjective - Date & Time of Evaluation Date of Evaluation: 02/18/18 Time of Evaluation: 12:02 - Subjective Subjective: Podiatry Consult note: Dr. Easley/Dr. Potter 67 year old male seen and evaluated at bedside for left dorsal foot pain. Patient is AAOx3. Patient continue to complain of pain, however, denies any acute overnight events. Denies of having any recent F/N/V/C. No other pedal complains at this time. Objective - Vital Signs/Intake and Output Vital Signs (last 24 hours): Temp Pulse Resp BP Pulse Ox 98.2 F 82 20 120/70 96 02/18/18 06:00 02/18/18 10:41 02/18/18 06:00 02/18/18 10:42 02/18/18 06:00 Intake and Output: 02/18/18 02/18/18 06:59 18:59 Intake Total 240 Balance 240 - Medications Medications: Current Medications Acetaminophen (Tylenol 325mg Tab) 650 mg PO Q4H PRN PRN Reason: Pain, Mild (1-3) Last Admin: 02/17/18 01:23 Dose: 650 mg Allopurinol (Zyloprim) 300 mg PO DAILY [facility] Aspirin (Ecotrin) 81 mg PO DAILY [facility] Last Admin: 02/18/18 10:42 Dose: 81 mg Atorvastatin Calcium (Lipitor) 10 mg PO DIN [facility] Last Admin: 02/17/18 17:54 Dose: 10 mg Carvedilol (Coreg) 3.125 mg PO BID [facility] Last Admin: 02/18/18 10:41 Dose: 3.125 mg Clopidogrel Bisulfate (Plavix) 75 mg PO DAILY [facility] Last Admin: 02/18/18 10:41 Dose: 75 mg Colchicine (Colocrys) 0.6 mg PO ONCE ONE Stop: 02/18/18 13:01 Colchicine (Colocrys) 0.6 mg PO DAILY [facility] Stop: 02/21/18 23:59 Digoxin (Digoxin) 0.125 mg PO MoWeFr@1400 [facility] Last Admin: 02/17/18 14:57 Dose: 0.125 mg Enoxaparin Sodium (Lovenox) 30 mg SC DAILY [facility] PRN Reason: Protocol Last Admin: 02/18/18 10:42 Dose: 30 mg Famotidine (Pepcid) 40 mg PO BID [facility] Last Admin: 02/18/18 10:41 Dose: 40 mg Furosemide (Lasix) 40 mg PO DAILY [facility] Last Admin: 02/18/18 10:42 Dose: 40 mg Gabapentin (Neurontin) 300 mg PO TID [facility] PRN Reason: Protocol Last Admin: 02/18/18 10:41 Dose: 300 mg Insulin Human Regular (Humulin R Low) 0 units SC ACHS [facility] PRN Reason: Protocol Last Admin: 02/18/18 07:51 Dose: Not Given Isosorbide Mononitrate (Imdur Er) 30 mg PO DAILY [facility] Last Admin: 02/18/18 10:41 Dose: 30 mg Levothyroxine Sodium (Synthroid) 150 mcg PO 0600 [facility] Last Admin: 02/18/18 08:51 Dose: 150 mcg Ondansetron HCl (Zofran Inj) 4 mg IVP Q4H PRN PRN Reason: Nausea/Vomiting Sodium Polystyrene Sulfonate (Kayexalate Susp) 30 gm PO ONCE ONE Stop: 02/18/18 14:01 - Labs Labs: 02/18/18 07:00 02/18/18 07:00 PT 12.2 SECONDS (9.4-12.5) 02/14/18 01:50 INR 1.07 (0.93-1.08) 02/14/18 01:50 APTT 68.4 Seconds (25.1-36.5) H 02/14/18 16:07 - Constitutional Appears: Well, Non-toxic, No Acute Distress - Head Exam Head Exam: ATRAUMATIC, NORMOCEPHALIC - Extremities Exam Additional comments: Left LE focused exam VASC: DP/PT pulses are palpable 2/4, Cap refill time: < 3 sec to all digits, Temp gradient: warm to cool from proximal to distal, no pitting or non--pitting edema noted DERM: no open lesion, <2 cm erythema noted on the dorsum of the left foot localized to the dorsal exostosis area, no clinical suspicion of active infection NEURO: Protective sensation grossly diminished ORTHO: Approx 2.5 cm x 2.5 cm exostosis noted at the level of medial tarso- metatarsal joint, pain on palpation surrounding the exostosis, pain during 1st ray ROM, mild crepitus during PROM at the 1st metatarsal-cunieform joint, Lisfranc's ligament injury questionable during physical exam due to positive for pain while performing piano antunez test - Neurological Exam Neurological Exam: Alert, Awake, Oriented x3 - Psychiatric Exam Psychiatric exam: Normal Affect, Normal Mood Assessment and Plan - Assessment and Plan (Free Text) Assessment: 67 year old male evaluated for left foot exostosis pain Plan: Patient seen and evaluated at bedside Plan discussed with attending, Dr. Easley Labs, vitals and charts reviewed X-rays of the left foot reviewed- exostosis noted to the dorsal aspect of the tarso- metatarsal joint Pain most likely due to arthritic tarso-metatarsal joint with exostosis irritating in shoe Recommend cortisone injection at the tarso-matatarsal joint- can be performed as an outpatient at the office, no acute intervention needed Upon discharge, f/u with Dr. Potter/Dr. Easley's office Podiatry will follow patient while in-house <Palmer Easley - Last Filed: 02/19/18 09:01> Objective - Vital Signs/Intake and Output Vital Signs (last 24 hours): Temp Pulse Resp BP Pulse Ox 98.3 F 64 18 111/64 98 02/18/18 22:02 02/18/18 22:34 02/18/18 22:02 02/18/18 22:02 02/18/18 22:02 Intake and Output: 02/19/18 02/19/18 06:59 18:59 Intake Total 660 Balance 660 - Medications Medications: Current Medications Acetaminophen (Tylenol 325mg Tab) 650 mg PO Q4H PRN PRN Reason: Pain, Mild (1-3) Last Admin: 02/18/18 21:34 Dose: 650 mg Allopurinol (Zyloprim) 300 mg PO DAILY [facility] Aspirin (Ecotrin) 81 mg PO DAILY [facility] Last Admin: 02/18/18 10:42 Dose: 81 mg Atorvastatin Calcium (Lipitor) 10 mg PO DIN [facility] Last Admin: 02/18/18 17:36 Dose: 10 mg Carvedilol (Coreg) 3.125 mg PO BID [facility] Last Admin: 02/18/18 17:43 Dose: 3.125 mg Clopidogrel Bisulfate (Plavix) 75 mg PO DAILY [facility] Last Admin: 02/18/18 10:41 Dose: 75 mg Colchicine (Colocrys) 0.6 mg PO DAILY [facility] Stop: 02/21/18 23:59 Digoxin (Digoxin) 0.125 mg PO MoWeFr@1400 [facility] Last Admin: 02/17/18 14:57 Dose: 0.125 mg Enoxaparin Sodium (Lovenox) 30 mg SC DAILY [facility] PRN Reason: Protocol Last Admin: 02/18/18 10:42 Dose: 30 mg Famotidine (Pepcid) 40 mg PO BID [facility] Last Admin: 02/18/18 17:40 Dose: 40 mg Furosemide (Lasix) 40 mg PO DAILY [facility] Last Admin: 02/18/18 10:42 Dose: 40 mg Gabapentin (Neurontin) 300 mg PO TID [facility] PRN Reason: Protocol Last Admin: 02/18/18 21:33 Dose: 300 mg Insulin Human Regular (Humulin R Low) 0 units SC ACHS [facility] PRN Reason: Protocol Last Admin: 02/18/18 22:00 Dose: Not Given Isosorbide Mononitrate (Imdur Er) 30 mg PO DAILY [facility] Last Admin: 02/18/18 10:41 Dose: 30 mg Levothyroxine Sodium (Synthroid) 150 mcg PO 0600 [facility] Last Admin: 02/18/18 08:51 Dose: 150 mcg Ondansetron HCl (Zofran Inj) 4 mg IVP Q4H PRN PRN Reason: Nausea/Vomiting Polysaccharide Iron Complex (Ferrex-150) 150 mg PO DAILY [facility] - Labs Labs: 02/18/18 07:00 02/19/18 07:00 PT 12.2 SECONDS (9.4-12.5) 02/14/18 01:50 INR 1.07 (0.93-1.08) 02/14/18 01:50 APTT 68.4 Seconds (25.1-36.5) H 02/14/18 16:07 Attending/Attestation - Attestation I have personally seen and examined this patient.: Yes I have fully participated in the care of the patient.: Yes I have reviewed all pertinent clinical information, including history, physical exam and plan: Yes
--- NOTE | 2018-02-18 14:32 | PN ---
DATE: 02/18/2018 Addendum to the initial progress note dictated by our nurse practitioner, Svetlana Adan. REASON FOR ADDENDUM: Lab shows high potassium, K is 5.8. Also, patient complained of left foot pain, possibly acute gout. In view of high , we will cancel the stress test, resume diet. We will give a stat Kayexalate 30 g now and 30 g at 02:00 p.m. Repeat blood workup at 05:00 and tomorrow, again SMA-7. If the potassium is below 5, we will do a stress test tomorrow. We will add uric acid level stat in the blood and empirically start colchicine possibly for acute gout. Follow up the uric acid level in the blood. Though patient had x-ray of the foot, we will follow, it was done yesterday, result pending. I discussed with the patient. Thank you Dr. Sutton for providing us the opportunity for taking care of Moraima Lee. Jeb Ramsay MD
[2018-02-18 17:39] LABS: CALCIUM 8.6 mg/dL (8.4-10.5)
--- NOTE | 2018-02-18 17:45 | US ---
PROCEDURE: Ultrasound of the Kidneys HISTORY: ARF/CKD3/ Check kidney size and echogenicity COMPARISON: None available. TECHNIQUE: Sonogram of the kidneys. FINDINGS: RIGHT KIDNEY: Measures: 5.3 x 5.9 x 10.9 cm. Normal in size, contour and echogenicity. No stone, solid mass lesion or hydronephrosis visualized. Incidental finding, simple cyst 3 x 3.9 cm LEFT KIDNEY: Measures: 3.4 x 2.7 x 7.1 cm. Atrophic left kidney. No stone, solid mass lesion or hydronephrosis visualized. OTHER FINDINGS: None. IMPRESSION: Atrophic left kidney. No significant findings right kidney.
--- NOTE | 2018-02-19 01:25 | CON ---
DATE: 02/18/2018 The patient was admitted for Dr. Sutton. REFERRING MD: Yessi Sutton MD REASON FOR CONSULTATION: Evaluation of the patient unknown to me who presents with acute renal failure superimposed on chronic kidney disease in the setting of CHF. HISTORY OF PRESENT ILLNESS: The patient is a pleasant 67-year-old [place] male with a 30-year history of diabetes mellitus, now on insulin, history of diabetic neuropathy. The patient has a history of chronic kidney disease with a baseline creatinine likely in the 2 range. The patient states that he has been followed by Dr. Teofilo Soriano in the outpatient setting for chronic kidney disease. He states he has one normal kidney and one small kidney. History of ASHD status post CABG 2012 in [facility], history of cardiomyopathy with ejection fraction of 28% with aortic stenosis/mitral regurgitation/tricuspid regurgitation, history of hypothyroidism, hyperlipidemia. The patient presented to the hospital with increasing shortness of breath and was found to be in congestive heart failure. The patient was appropriately treated with diuretic therapy. BUN had risen from 35-53 secondary to use of diuretics. Creatinine had risen from 2 up to 2.7 and is now 2.1 which is likely his baseline. He does have protein in the urine. No imaging studies were done at this point in time, no 24-hour urines were done. The patient was noted to be mild to moderately hyperkalemic. GISEL inhibition was discontinued. The patient was treated with Kayexalate. We are asked to evaluate patient for his [id number] chronic kidney disease and hyperkalemia. PAST MEDICAL HISTORY: Significant for diabetes mellitus, now on insulin of 30 years duration; history of diabetic neuropathy, history of chronic kidney disease stage III, history of hypertension, ASHD status post CABG 2012 at [facility], history of cardiomyopathy with ejection fraction 28%, MR/AR/TR, hypothyroidism, hyperlipidemia. MEDICATIONS AT HOME: Include that of Neurontin, Plavix, Lopressor, Synthroid, Lipitor, Zestril, Ecotrin, and insulin. ALLERGIES: THE PATIENT IS ALLERGIC TO SULFA WITH HIS SEVERE IS ANAPHYLAXIS. CURRENT MEDICATIONS IN THE HOSPITAL: Include that of colchicine, Coreg, digoxin, Ecotrin, insulin, Imdur, Kayexalate x1 dose, Lasix 40 mg a day, Lovenox, Neurontin, Pepcid, Plavix, Synthroid, Tylenol p.r.n., Zofran p.r.n., and allopurinol. SOCIAL HISTORY: History of cigarette smoking one pack per day for many years, he quit 9 years ago. No history of alcohol use. FAMILY HISTORY: Positive for complications of diabetes of both his mother and father. No history of chronic kidney disease. REVIEW OF SYSTEMS: GENERAL: The patient states appetite and weight have been stable. ENT: Denies any hearing or visual problems. PULMONARY: Shortness of breath on admission, currently resolved. No history of COPD, bronchitis, emphysema, or pneumonia. CARDIAC: History as noted above. History of CHF. History of cardiomyopathy with valvular heart disease. GI: No nausea, no vomiting, no diarrhea, no constipation, no abdominal pain. : History of chronic kidney disease stage III. ENDOCRINE: History of diabetes mellitus of 30 years duration. MUSCULOSKELETAL: No issues. NEUROLOGIC: No history of CVA, TIA, seizures or syncope. Positive history of neuropathy likely secondary to diabetes. HEMATOLOGY AND ONCOLOGY: History of borderline to mild anemia. No history of malignancy. PSYCHIATRIC: History is negative. PHYSICAL EXAMINATION GENERAL: The patient is currently seen on 5R. He is lying comfortable supine in bed in no acute distress. VITAL SIGNS: Blood pressure is 120/70 with a temperature of 98.2, respiratory rate of 20 with a pulse of 82. HEENT: Shows him to be normocephalic, atraumatic. Conjunctivae are pink. Sclerae are nonicteric. Pupils equal, reactive to light and accommodation. Extraocular muscles are intact. Posterior pharynx is normal. NECK: Supple. No neck vein distention, no thyromegaly, no lymphadenopathy, no bruits. CHEST: Clear to auscultation and percussion with slight decreased breath sounds at the bases. No rales, rhonchi or wheezing. CARDIOVASCULAR: Shows a regular rate and rhythm with MR//TR. No S3, no S4, no rub. ABDOMEN: Soft. Bowel sounds normal. No rebound, guarding or masses. Minimal obesity. BACK: No CVAT. No spinal tenderness. EXTREMITIES: Show no lower extremity cyanosis, clubbing or edema. Distal lower extremity pulses are 1 to 2+ bilaterally. NEUROLOGIC: Shows him to be alert, oriented x3 with no gross focal motor or sensory deficits noted. IMAGING: Admitting chest x-ray showed CHF. Admitting EKG showed a sinus tachycardia with left axis deviation, intraventricular conduction defect. Echocardiogram done shows ejection fraction of 28% with MR/AR/TR. LABORATORY DATA: CBC: White blood cell count 7.9, hemoglobin stable at 12.3, platelet count is 203,000. Coags are normal. Chemistries showed a BUN of 35 on admission up to a high of 53, which is the last available BUN. Creatinine was 2 on admission up to a high of 2.7, now down to 2.1. Electrolytes: CO2 is 34. Chloride is 97. Anion gap is 14. Glucose is 173, hemoglobin A1c was 9.6%. Uric acid was elevated at 12. Calcium was 8.7 with a phosphorus level of 3.9 and a magnesium level of 1.9. Iron saturations were 13%. Liver enzymes are normal. Albumin level was 4. TSH level was mildly elevated at 6.65. Urine showed 2 to 3+ protein. Otherwise unremarkable. Microbiology: All cultures are negative at four days. ASSESSMENT: 1. Acute renal failure superimposed likely on chronic kidney disease stage III. The patient follows in the outpatient setting with Dr. Teofilo Soriano in [place]. He has a known history of chronic kidney disease. He was told in the past that he had one small kidney and one normal kidney. He states he has not had any recent kidney ultrasounds or 24-hour urine collections. In all likelihood, mild elevation of BUN is secondary to diuretic therapy in the setting of congestive heart failure. Creatinine appears to be stable on his baseline in the low 2 range. 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 In light of his possible history of small kidney, perhaps some component of renal vascular hypertension. 2. Hyperkalemia. Agree with discontinuation of the GISEL inhibitor. The patient should be maintained on a renal diet, low potassium diet. 3. History of hypertension. Blood pressure controlled on present medical therapy. No change in current regimen with the exception of holding the GISEL inhibitor at this point time because of hyperkalemia. 4. History of atherosclerotic heart disease, status post coronary artery bypass graft 2012, history of cardiomyopathy, ejection fraction 28% with valvular heart disease, aortic stenosis/mitral regurgitation, tricuspid regurgitation. The patient had a brief trial of Primacor. He is currently off this medication. Goal is to try and optimize cardiac output and to try and use as little diuretic as possible to maintain him free of congestive heart failure. In reality, the patient will likely remain mildly prerenal because of the need for diuretic therapy. 5. History of hypothyroidism, elevated TSH level on admission. The patient is back on thyroid replacement therapy. 6. History of hyperlipidemia. The patient will continue diet therapy and statin therapy. 7. History of peripheral neuropathy secondary to diabetes. The patient will continue Neurontin therapy. 8. No known history of diabetic retinopathy. The patient states he has had cataract surgery, but never had laser surgery to the retina. PLAN: 1. Discussed with the patient. He states that his renal workup done by Dr. Soriano was not done in a lengthy period of time. I will order a 24-hour urine for creatinine clearance and protein. I will also repeat his renal ultrasound study. 2. The patient to be maintained on a renal diet, low potassium diet with intermittent use of Kayexalate. 3. We will obtain a PTH level and a vitamin D level. 4. Start the patient on oral iron supplements post one dose of Venofer. Hemoglobin is acceptable and no need for Aranesp at this point in time. 5. We will continue to hold GISEL inhibitor at this point in time in light of his hyperkalemia. 6. Discussed with the patient in detail. Explained to him that he should follow up with Dr. Teofilo Soriano upon discharge. He states that he actually does have an appointment for later this week which will likely be canceled because of present hospitalization. Thank you for letting us partake and share in the care of your patient. Jorge Hinojosa MD
--- NOTE | 2018-02-19 03:25 | PN ---
DATE: 02/18/2018 SUBJECTIVE: The patient was seen on 02/18/2018, looking comfortable. No nausea, vomiting or diarrhea. No hematuria, no hematochezia. No swelling of the legs. No chest pain. No palpitation. No shortness of breath. Potassium is high and kidney function is not very well, we involved Nephrology, seen by the passenger service representative. PHYSICAL EXAMINATION: VITAL SIGNS: Temperature 98.5, pulse 82, respiratory rate is 20, blood pressure 105/65, pulse oximetry of 98. HEENT: Head normocephalic, atraumatic. Eyes, PERRLA. Extraocular muscles intact. Conjunctivae clear. Nose patent. Mucous membrane moist. NECK: Supple. No carotid bruit. No JVD or thyromegaly. CHEST: Bilaterally symmetrical. HEART: S1 and S2 positive. LUNGS: Clear to auscultation. ABDOMEN: Soft. Bowel sounds present. No organomegaly. EXTREMITIES: No edema. No cyanosis. NEUROLOGIC: The patient is awake and alert. Moving all 4 extremities. No focal deficit. MEDICATIONS: Tylenol, Ecotrin, Lipitor, Coreg, Plavix, digoxin, Lovenox, Pepcid, Neurontin, Insulin, Imdur, Synthroid, Zestril, Zofran. LABORATORY DATA: White blood cell 8.2, hemoglobin 12.5, hematocrit 37.4, platelets 211. Sodium 138, potassium is 5.6, BUN 52, creatinine 2.1, glucose 251. ASSESSMENT AND PLAN: Mr. Moraima Lee is a 67-year-old male with anemia, hyperkalemia, got 3 doses of 30 g Kayexalate, renal insufficiency, hyperglycemia. We called consult with the patient care secretary. Came with shortness of breath, chest pain. History of hypertension, ex-smoker, coronary artery disease with bypass graft, coronary artery bypass graft 5 years ago at [facility], hypothyroidism, diabetic neuropathy, arthritis, hypercholesterolemia, used to walk a lot, now he cannot walk, getting dyspneic. Pulmonary emboli workup is negative, coronary ischemia and deep venous thrombosis negative, acute decompensated congestive heart failure with ejection fraction on echo 25%. Got Primacor drip, need stress test, elevated potassium yesterday and got 3 doses of 30 g Kayexalate, repeated potassium level, today off the Primacor drip now. Denies shortness of breath, feels better. Podiatry on the consult. Heart rhythm and blood pressure under control. Less shortage of breath compared to baseline, able to lie down in the bed with one pillow, controlled congestive heart failure, continue aspirin, Coreg, Lipitor, digoxin, Lovenox, Plavix, Lasix, lisinopril, Nitro-Bid ointment , every 6 hours. Appreciated passenger service representative's input. Seen by Podiatry Dr. Palmer Easley. Renal ultrasound was done. Gastrointestinal and deep venous thrombosis prophylaxis. Repeat labs. We will follow up. Yessi Sutton MD MTDD
--- NOTE | 2018-02-19 03:41 | PN ---
DATE: 02/18/2018 PULMONARY PROGRESS NOTE REFERRING PHYSICIAN: Yessi Sutton MD. SUBJECTIVE: Patient is lying in the bed, head at 45 degrees. Could not use CPAP last night. No headache, no rhinitis. Breathing is better. No nausea, no vomiting, no diarrhea. No leg pain, no leg swelling. OBJECTIVE: GENERAL: In no acute distress. VITAL SIGNS: Temperature is 98, heart rate 82, respiratory rate is 20, blood pressure 104/58, pulse ox 98% on 2 liters nasal cannula. HEENT: Moist mucous membrane. Crowded airway. Mallampati score is 4. NECK: Supple. No JVD. LUNGS: Have a few crackles at the bases. HEART: S1 and S2. ABDOMEN: Soft, nontender, no organomegaly. EXTREMITIES: No edema. NEUROLOGIC: Awake, alert, and follows simple command. MEDICATIONS: He is on colchicine 0.6 mg daily; Coreg 3.125 mg twice a day; digoxin 0.125 mg daily Saturday, Saturday and Saturday; Ecotrin 81 mg daily, Ferrex 150 mg daily; insulin coverage; Imdur ER 30 mg daily; Lasix 40 mg daily; Lipitor 10 mg daily; Lovenox 30 mg subcu daily; Neurontin 300 mg three times a day; Pepcid 40 mg twice a day; Plavix 75 mg daily; Synthroid 150 mcg daily; Tylenol p.r.n.; Zofran p.r.n. basis; allopurinol 300 mg daily. LABORATORY DATA: Shows hemoglobin 12.3, hematocrit 37.5, WBC 7.9, platelet is 203. Sodium 141, potassium 4.6, chloride 98, bicarbonate 29, BUN 47, creatinine 1.9, glucose 189, calcium is 8.6. Microbiology: Blood culture has been negative. ASSESSMENT AND PLAN: Severe cardiomyopathy, pulmonary hypertension, may have sleep apnea syndrome, hypothyroid, hypertension, ex-smoker, diabetes. Pulmonary point of view, he is doing okay. We will continue to encourage BiPAP. Educated the patient about sleep apnea in relation to cardiomyopathy and benefit of BiPAP understanding and will use CPAP tonight. Potassium was high and Kayexalate was given. Thank you and we will follow with you. Jeb Tena MD [facility] # [id number]
--- NOTE | 2018-02-19 07:06 | CP.PCM.PN ---
Subjective - Date & Time of Evaluation Date of Evaluation: 02/19/18 Time of Evaluation: 06:20 - Subjective Subjective: Awake,lying in bed, mild shortness of breath Reason for consultation and follow up: Cardiac evaluation for shortness of breath.history of Coronary artery disease with bypass grafting 5 years ago at [facility], hypertension, hypothyroidism, diabetes, diabetic neuropathy,arthritis,hyperlipidemia Seen and examined by me and Dr. Ramsay Objective - Vital Signs/Intake and Output Vital Signs (last 24 hours): Temp Pulse Resp BP Pulse Ox 98.3 F 64 18 111/64 98 02/18/18 22:02 02/18/18 22:34 02/18/18 22:02 02/18/18 22:02 02/18/18 22:02 Intake and Output: 02/19/18 02/19/18 06:59 18:59 Intake Total 660 Balance 660 - Medications Medications: Current Medications Acetaminophen (Tylenol 325mg Tab) 650 mg PO Q4H PRN PRN Reason: Pain, Mild (1-3) Last Admin: 02/18/18 21:34 Dose: 650 mg Allopurinol (Zyloprim) 300 mg PO DAILY [facility] Aspirin (Ecotrin) 81 mg PO DAILY [facility] Last Admin: 02/18/18 10:42 Dose: 81 mg Atorvastatin Calcium (Lipitor) 10 mg PO DIN [facility] Last Admin: 02/18/18 17:36 Dose: 10 mg Carvedilol (Coreg) 3.125 mg PO BID [facility] Last Admin: 02/18/18 17:43 Dose: 3.125 mg Clopidogrel Bisulfate (Plavix) 75 mg PO DAILY [facility] Last Admin: 02/18/18 10:41 Dose: 75 mg Colchicine (Colocrys) 0.6 mg PO DAILY [facility] Stop: 02/21/18 23:59 Digoxin (Digoxin) 0.125 mg PO MoWeFr@1400 [facility] Last Admin: 02/17/18 14:57 Dose: 0.125 mg Enoxaparin Sodium (Lovenox) 30 mg SC DAILY [facility] PRN Reason: Protocol Last Admin: 02/18/18 10:42 Dose: 30 mg Famotidine (Pepcid) 40 mg PO BID [facility] Last Admin: 02/18/18 17:40 Dose: 40 mg Furosemide (Lasix) 40 mg PO DAILY [facility] Last Admin: 02/18/18 10:42 Dose: 40 mg Gabapentin (Neurontin) 300 mg PO TID [facility] PRN Reason: Protocol Last Admin: 02/18/18 21:33 Dose: 300 mg Insulin Human Regular (Humulin R Low) 0 units SC ACHS [facility] PRN Reason: Protocol Last Admin: 02/18/18 22:00 Dose: Not Given Isosorbide Mononitrate (Imdur Er) 30 mg PO DAILY [facility] Last Admin: 02/18/18 10:41 Dose: 30 mg Levothyroxine Sodium (Synthroid) 150 mcg PO 0600 [facility] Last Admin: 02/18/18 08:51 Dose: 150 mcg Ondansetron HCl (Zofran Inj) 4 mg IVP Q4H PRN PRN Reason: Nausea/Vomiting Polysaccharide Iron Complex (Ferrex-150) 150 mg PO DAILY [facility] - Labs Labs: 02/18/18 07:00 02/18/18 17:14 PT 12.2 SECONDS (9.4-12.5) 02/14/18 01:50 INR 1.07 (0.93-1.08) 02/14/18 01:50 APTT 68.4 Seconds (25.1-36.5) H 02/14/18 16:07 - Constitutional Appears: No Acute Distress - Head Exam Head Exam: NORMOCEPHALIC - Eye Exam Eye Exam: Normal appearance - ENT Exam ENT Exam: Mucous Membranes Moist - Respiratory Exam Respiratory Exam: Decreased Breath Sounds, Clear to Ausculation Bilateral, NORMAL BREATHING PATTERN - Cardiovascular Exam Cardiovascular Exam: +S1, +S2 - GI/Abdominal Exam GI & Abdominal Exam: Soft, Normal Bowel Sounds - Extremities Exam Additional comments: left dorsal foot pain - Neurological Exam Neurological Exam: Alert, Awake, Oriented x3 - Psychiatric Exam Psychiatric exam: Normal Affect, Normal Mood - Skin Skin Exam: Intact, Normal Color, Warm Assessment and Plan - Assessment and Plan (Free Text) Assessment: A 67 year old male who came in to the ER 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 Claimed to have mild chest pain. Also complaints of bilateral leg pain, pain to touch to lower extremities . History of hypertension, ex-smoker, CAD with bypass grafting (CABG 5 years ago at [facility] [place]hypothyroidism, diabetes, diabetic neuropathy,arthritis,hyperlipidemia. Prior to admission, walked a lot and with no problems, worked as a it security manager. Work up negative for pulmonary embolism ,coronary ischemia and DVT. Acute decompensated congestive heart failure, LVEF on Echo 25%.Mild AR,moderate MR,moderate aortic stenosis,Severely impaired systolic function. Primacor drip was given.Refusing stress test and cardiac catheterization but agreed eventually. Renal work up. Plan: Feels better Stress Test cancelled yesterday due to elevated potassium Today, K-4.6, Stress test today Podiatry on consult for left dorsal foot pain, office follow up Heart rate and blood pressure controlled On ASA 81 mg daily,Coreg 3.125 mg BID,Lipitor 10 mg daily Digoxin 0.125 mg 3 x a week (MWF),Lovenox 30 mg daily, Plavix 75 mg daily, Lasix 40 mg daily,Lisinopril 5 mg daily, Nitrobid ointment top every 6 hours On 24 hour urine collection Renal work up Will follow up Plan and treatment discussed with Dr. Ramsay
[2018-02-19 07:34] LABS: CALCIUM 8.7 mg/dL (8.4-10.5)
[2018-02-19] MEDS ORDERED: Aminophylline 25 mg/ml Inj ONE (08:42)
[2018-02-19 09:18] VITALS: RESP 20
[2018-02-19] MEDS: Iron Complex Polysacch 150mg Cap PO SCH (11:29)
[2018-02-19] MEDS: Insulin Reg-LOW-Coverage SC SCH ×3 (11:34→17:58)
[2018-02-19] MEDS: Enoxaparin 30 mg Syringe SC SCH (11:38)
[2018-02-19] MEDS: Digoxin 125 mcg (0.125 mg) Tab PO SCH (13:38)
[2018-02-19 13:40] VITALS: PULSE 82
--- NOTE | 2018-02-19 16:14 | PN ---
DATE: 02/19/2018 PULMONARY PROGRESS NOTE REFERRING PHYSICIAN: Yessi Sutton MD. SUBJECTIVE: He is seen and examined while getting stress Thallium done. Night was unremarkable. Tolerated BiPAP well. No nausea. No vomiting. No diarrhea, leg pain, leg swelling. OBJECTIVE: GENERAL: In no acute distress. VITAL SIGNS: Temperature is 98, heart rate is 82, respiratory rate is 20, blood pressure 109/66, pulse ox 98% on nasal cannula. HEENT: Moist mucous membrane. Crowded airway. NECK: Supple. No JVD. LUNGS: Have a fair airflow with rhonchi. HEART: S1 and S2. ABDOMEN: Soft and nontender. No organomegaly. EXTREMITIES: No edema. NEUROLOGICAL: Awake and alert. Follows simple command. LABORATORY DATA: Shows sodium 141, potassium 4.9, chloride 96, bicarbonate 34, BUN 48, creatinine 1.9, glucose 190, calcium 8.7, magnesium 1.9, vitamin D is 24. Microbiology: Blood cultures are negative. MEDICATIONS: He is on colchicine 0.6 mg daily; Coreg 3.125 mg twice a day; digoxin 0.125 mg Saturday, Saturday, Saturday; Ecotrin 81 mg daily, ferrous sulfate 150 mg daily; insulin coverage; Imdur ER 30 mg daily; Lasix 40 mg daily; Lipitor 10 mg daily; Lovenox 30 mg subcu daily; Neurontin 300 mg three times a day; Pepcid 40 mg twice a day; Plavix 75 mg daily; Synthroid 150 mcg daily; Tylenol p.r.n.; Zofran p.r.n.; allopurinol 300 mg daily. IMPRESSION AND PLAN: Severe cardiomyopathy, pulmonary hypertension, may have sleep apnea syndrome, hypothyroid, hypertension, ex-smoker, diabetes. Pulmonary point of view, doing okay. Discharge planning if stress test is unremarkable. Outpatient attended sleep study, pulmonary function test, diuretics, afterload manager private, beta porfirio. Fall precaution. Thank you and we will follow with you. Jeb Tena MD
--- NOTE | 2018-02-19 21:33 | PN ---
DATE: 02/19/2018 SUBJECTIVE: The patient is seen sitting in bed. He is awake. He is alert. He is eating lunch. He denies any pain. He denies any shortness of breath. PHYSICAL EXAMINATION GENERAL: Elderly male sitting in bed. VITAL SIGNS: Blood pressure 109/66, heart rate 82, respiratory rate 20, temperature 98. HEENT: Normocephalic, atraumatic, positive pallor. NECK: Supple, no JVD. LUNGS: Bilateral equal air entry, bilateral equal expansion, no rales. CARDIAC: S1 and S2, regular rate and rhythm, no murmur, no rub. ABDOMEN: Soft, nondistended, nontender, bowel sounds present. EXTREMITIES: No lower extremity edema. INTAKE AND OUTPUT: 660 /not charted. LABORATORY DATA: WBC 7.5, hemoglobin 12, hematocrit 37.5, platelets 203. Sodium 141, potassium 4.9, chloride 96, CO2 of 34, BUN 48, creatinine 1.9, glucose 190, calcium 8.7, phosphorus 3.6, magnesium 1.9. Urinalysis, yellow, clear, pH 6, specific 1.025, protein 100, blood trace, nitrite negative, leukocyte esterase negative. Blood cultures no growth. Renal ultrasound, right kidney 10.9 cm and left kidney 7 cm. CURRENT MEDICATIONS: Colchicine 0.6; Coreg 3.125 b.i.d.; digoxin 0.125 Saturday, Saturday, Saturday; aspirin 81; insulin; Imdur 30; Lasix 40 p.o. daily; Lipitor; Lovenox; gabapentin; Pepcid; Plavix; Synthroid; Tylenol; Zofran; allopurinol. ASSESSMENT: 1. Longstanding diabetes. 2. Acute kidney injury superimposed on chronic kidney disease stage III versus acute kidney injury. 3. Atrophic left kidney? 4. Hyperkalemia, resolved. 5. . 6. Coronary artery disease, history of coronary artery bypass graft, cardiomyopathy, decreased ejection fraction of 28%. 7. Hypothyroidism. 8. Hyperlipidemia. 9. Peripheral neuropathy. PLAN: 1. Get outpatient laboratory data if possible. 2. Check 24-hour urine for protein and creatinine clearance. 3. Nuclear renal scan to see if there is any function in the left kidney. 4. Renal artery Dopplers to rule out renal artery stenosis. 5. Further recommendations to follow once workup is available. Stephanie Salcedo MD
[2018-02-20] MEDS: Levothyroxine 150 MCG TAB PO SCH ×2 (03:53→05:46)
[2018-02-20] MEDS: Insulin Reg-LOW-Coverage SC SCH ×3 (03:57→11:58)
--- NOTE | 2018-02-20 05:52 | PN ---
DATE: 02/19/2018 SUBJECTIVE: The patient was seen and examined on 02/19/2018, looking comfortable. No nausea, vomiting, or diarrhea. No hematuria or hematochezia. No swelling of the legs. No chest pain. No palpitations. No headache or dizziness. Tolerated BiPAP very well. Went for stress test today and Thallium stress test was done. PHYSICAL EXAMINATION: VITAL SIGNS: Temperature 98, heart rate 82, respiratory rate 20, blood pressure 109/66, pulse oximetry is 98% on nasal cannula. HEENT: Head is normocephalic and atraumatic. Eyes, PERRLA. Extraocular muscles are intact. Conjunctivae are clear. Nose is patent. Mucous membrane moist. NECK: Supple. No carotid bruit. No JVD or thyromegaly. CHEST: Bilaterally symmetrical. HEART: S1 and S2 positive. LUNGS: Clear to auscultation. ABDOMEN: Soft. Bowel sounds present. No organomegaly. EXTREMITIES: No edema. No cyanosis. NEUROLOGICAL: The patient is awake and alert. Moving all 4 extremities. No focal deficits. LABORATORY DATA: Sodium of 141, potassium 4.9, BUN 48, creatinine 1.9, glucose 190. Vitamin D 24. ASSESSMENT AND PLAN: Mr. Moraima Lee is a 67-year-old male with vitamin D deficiency, we replaced that; severe cardiomyopathy; pulmonary hypertension; sleep apnea syndrome; hypothyroidism; hypertension; ex-smoker; diabetes mellitus, not very well controlled; renal insufficiency; went for stress test today; history of hyperkalemia. We will continue colchicine for gouty arthritis, Coreg for hypertension, digoxin three times a week, Ecotrin, ferrous sulfate, insulin coverage, Imdur, Lasix, Lipitor, Lovenox, Neurontin, Pepcid, Plavix, Synthroid for hypothyroidism, allopurinol. Fall precautions. Seen by Dr. Salcedo, child psychiatrist, and Dr. Ramsay, analyst business analysis. Acute kidney injury superimposed on chronic kidney disease, stage III, versus acute kidney injury as per Dr. Salcedo, atrophic left kidney; hyperkalemia, resolved; peripheral neuropathy. Nuclear renal scan to see if there is any function in the left kidney as per Dr. Salcedo, renal artery Doppler to rule out renal artery stenosis. Gastrointestinal and deep venous thrombosis prophylaxis. Repeat labs. We will follow up. Length of time discussion done with the patient. All questions answered. Yessi Sutton MD
--- NOTE | 2018-02-20 08:10 | CP.PCM.PN ---
Subjective - Date & Time of Evaluation Date of Evaluation: 02/20/18 Time of Evaluation: 06:45 - Subjective Subjective: Awake,lying in bed, denies chest pain,denies shortness of breath, wanted to go home Reason for consultation and follow up: Cardiac evaluation for shortness of breath.history of Coronary artery disease with bypass grafting 5 years ago at [facility], hypertension, hypothyroidism, diabetes, diabetic neuropathy,arthritis,hyperlipidemia Seen and examined by me and Dr. Ramsay Objective - Vital Signs/Intake and Output Vital Signs (last 24 hours): Temp Pulse Resp BP Pulse Ox 98.3 F 83 20 171/95 H 96 02/19/18 14:00 02/19/18 22:52 02/19/18 14:00 02/19/18 18:07 02/19/18 14:00 Intake and Output: 02/20/18 02/20/18 06:59 18:59 Output Total 300 Balance -300 - Medications Medications: Current Medications Acetaminophen (Tylenol 325mg Tab) 650 mg PO Q4H PRN PRN Reason: Pain, Mild (1-3) Last Admin: 02/18/18 21:34 Dose: 650 mg Allopurinol (Zyloprim) 300 mg PO DAILY [facility] Last Admin: 02/19/18 11:45 Dose: Not Given Aspirin (Ecotrin) 81 mg PO DAILY [facility] Last Admin: 02/19/18 11:28 Dose: Not Given Atorvastatin Calcium (Lipitor) 10 mg PO DIN [facility] Last Admin: 02/19/18 18:07 Dose: 10 mg Carvedilol (Coreg) 3.125 mg PO BID [facility] Last Admin: 02/19/18 18:07 Dose: 3.125 mg Clopidogrel Bisulfate (Plavix) 75 mg PO DAILY [facility] Last Admin: 02/19/18 11:40 Dose: Not Given Colchicine (Colocrys) 0.6 mg PO DAILY [facility] Stop: 02/21/18 23:59 Last Admin: 02/19/18 11:26 Dose: Not Given Digoxin (Digoxin) 0.125 mg PO MoWeFr@1400 [facility] Last Admin: 02/19/18 13:38 Dose: 0.125 mg Enoxaparin Sodium (Lovenox) 30 mg SC DAILY [facility] PRN Reason: Protocol Last Admin: 02/19/18 11:38 Dose: Not Given Famotidine (Pepcid) 40 mg PO BID [facility] Last Admin: 02/19/18 18:06 Dose: 40 mg Furosemide (Lasix) 40 mg PO DAILY [facility] Last Admin: 02/19/18 11:36 Dose: Not Given Gabapentin (Neurontin) 300 mg PO TID [facility] PRN Reason: Protocol Last Admin: 02/19/18 18:06 Dose: 300 mg Insulin Human Regular (Humulin R Low) 0 units SC ACHS [facility] PRN Reason: Protocol Last Admin: 02/20/18 03:57 Dose: Not Given Isosorbide Mononitrate (Imdur Er) 30 mg PO DAILY [facility] Last Admin: 02/19/18 11:36 Dose: Not Given Levothyroxine Sodium (Synthroid) 150 mcg PO 0600 [facility] Last Admin: 02/20/18 05:46 Dose: 150 mcg Ondansetron HCl (Zofran Inj) 4 mg IVP Q4H PRN PRN Reason: Nausea/Vomiting Polysaccharide Iron Complex (Ferrex-150) 150 mg PO DAILY [facility] Last Admin: 02/19/18 11:29 Dose: Not Given - Labs Labs: 02/18/18 07:00 02/19/18 07:00 PT 12.2 SECONDS (9.4-12.5) 02/14/18 01:50 INR 1.07 (0.93-1.08) 02/14/18 01:50 APTT 68.4 Seconds (25.1-36.5) H 02/14/18 16:07 - Constitutional Appears: No Acute Distress - Head Exam Head Exam: NORMOCEPHALIC - Eye Exam Eye Exam: Normal appearance - ENT Exam ENT Exam: Mucous Membranes Moist - Respiratory Exam Respiratory Exam: Decreased Breath Sounds, Clear to Ausculation Bilateral, NORMAL BREATHING PATTERN - Cardiovascular Exam Cardiovascular Exam: +S1, +S2 - GI/Abdominal Exam GI & Abdominal Exam: Soft, Normal Bowel Sounds - Exam Additional comments: continent - Extremities Exam Extremities Exam: Normal Capillary Refill Additional comments: left dorsal foot pain +1 swelling, pain to touch - Neurological Exam Neurological Exam: Alert, Awake, Oriented x3 - Psychiatric Exam Psychiatric exam: Normal Affect, Normal Mood - Skin Skin Exam: Intact, Normal Color, Warm Assessment and Plan - Assessment and Plan (Free Text) Assessment: A 67 year old male who came in to the ER due to 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 Claimed to have mild chest pain. Also complaints of bilateral leg pain, pain to touch to lower extremities . History of hypertension, ex-smoker, CAD with bypass grafting (CABG 5 years ago at [facility] [place]hypothyroidism, diabetes, diabetic neuropathy,arthritis,hyperlipidemia. 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 Acute decompensated congestive heart failure, LVEF on Echo 25%.Mild AR,moderate MR,moderate aortic stenosis,Severely impaired systolic function. Primacor drip was given.Refusing stress test and cardiac catheterization but agreed eventually. Renal work up. 24 hour urine collection. Stress test done. Plan: Wanted to go home Feels better Stress Test done yesterday-will follow result Podiatry on consult for left dorsal foot pain, office follow up Heart rate and blood pressure controlled On ASA 81 mg daily,Coreg 3.125 mg BID,Lipitor 10 mg daily Digoxin 0.125 mg 3 x a week (MWF),Lovenox 30 mg daily, Plavix 75 mg daily, Lasix 40 mg daily,Lisinopril 5 mg daily, Nitrobid ointment top every 6 hours On 24 hour urine collection K level witihin normal limits Renal work up Will follow up Plan and treatment discussed with Dr. Ramsay
[2018-02-20 08:11] VITALS: BP 115/71; PULSE 89; TEMP 98.8; O2SAT 97
[2018-02-20 08:48] LABS: URINE CREATININE 64.4 mg/dL
[2018-02-20 09:09] LABS: BASO # 0.03 K/mm3 (0.0-2.0); BASO % 0.4 % (0.0-3.0); EOS # 0.4 (0.0-0.7); EOS % 5.2 % (1.5-5.0); GRAN # 5.03 (1.4-6.5); GRAN % 64.4 % (50.0-68.0); HEMOGLOBIN 13.8 g/dL (14.0-18.0); LYMPH # 1.8 (1.2-3.4); MEAN CELL VOLUME 81.8 fl (80.0-105.0); MEAN CORPUSCULAR HEMOGLOBIN 27.1 pg (25.0-35.0); MEAN CORPUSCULAR HGB CONC 33.1 g/dl (31.0-37.0); MEAN PLATELET VOLUME 9.4 fl (7.0-11.0); MONO # 0.6 (0.1-0.6); RBC 5.1 10^6/uL (3.5-6.1); WHITE BLOOD COUNT 7.8 10^3/ul (4.5-11.0)
--- NOTE | 2018-02-20 09:23 | US ---
PROCEDURE: Bilateral renal artery duplex ultrasound. CLINICAL HISTORY: Renal artery stenosis. Uncontrolled hypertension. Evaluate for renovascular hypertension. PHYSICIAN(S): Trent Chavez M.D. TECHNIQUE: Duplex sonography with color-flow Doppler was used to evaluate the visualized segments of the main renal arteries. The patient was evaluated in a fasting state. Imaging in a supine and decubitus position was performed. Limited evaluation of the arcuate waveforms and resistive indices were performed. FINDINGS: The overall quality of the study is limited by body habitus and bowel gas the right kidney measures 11.5 cm. The left kidney is small and atrophic, measuring 7.0 cm. No hydronephrosis or solid masses are appreciated. No abnormal calcifications are seen. The origin of the right renal artery is not well visualized due to tortuosity.. The peak systolic velocity in the right main renal artery is 169 cm/sec. This is consistent with a 0 to 49% stenosis in the main right renal artery. The arcuate waveforms are normal. The resistive index is normal. The main left renal artery is atrophic and not well seen.. The peak systolic velocity in the main left renal artery is 109cm/sec. This corresponds to a 0 to 49% stenosis in the main left renal artery. The resistive indices elevated. IMPRESSION: 1. The left kidney is atrophic. The right kidney is normal in appearance. 2. Unfortunately, the origin of the right kidney is not well visualized. No obvious stenosis is seen. If clinical suspicion is high for right renal artery stenosis, further evaluation with an MRA with gadolinium, CTA with contrast, or conventional arteriogram can be considered 3. No hydronephrosis or abnormal calcifications
[2018-02-20 09:26] LABS: CALCIUM 9.3 mg/dL (8.4-10.5)
[2018-02-20] MEDS: Enoxaparin 30 mg Syringe SC SCH (09:54)
[2018-02-20] MEDS: Iron Complex Polysacch 150mg Cap PO SCH (09:54)
[2018-02-20] MEDS ORDERED: POLYETHYLENE GLYCOL 3350 17 GM/Dose PACKET PO ONE (11:30)
[2018-02-20] MEDS ORDERED: Sod Polystyrene Sulf 15 gm/60 ml Susp PO ONE (11:33)
--- NOTE | 2018-02-20 15:28 | PN ---
DATE: 02/20/2018 SUBJECTIVE: The patient is seen sitting in bed. He is all dressed to leave. He feels well. Denies any shortness of breath. He denies any headaches. Denies any chest tightness. PHYSICAL EXAMINATION: GENERAL: Elderly male sitting in bed. VITAL SIGNS: Blood pressure 115/71, heart rate 89, respiratory rate 20, temperature 98.8. HEENT: Normocephalic, atraumatic, positive pallor. NECK: Supple, no JVD. LUNGS: Bilateral equal air entry, bilateral equal expansion. CARDIAC: S1 and S2, regular rate and rhythm, no murmur, no rub. ABDOMEN: Obese, distended, soft, nontender, bowel sounds present. EXTREMITIES: No lower extremity edema. INTAKE AND OUTPUT: 420/300. LABORATORY DATA : WBC 7.8, hemoglobin 13.8, hematocrit 42, platelets 235. Sodium 141, potassium 5.5, chloride 97, CO2 of 32, BUN 36, creatinine 1.8, glucose 230, calcium 9.3. Urine protein 1416 mg per day, creatinine clearance 58. CURRENT MEDICATIONS: Colcrys, Coreg 3.125 b.i.d., digoxin, Ecotrin, iron, insulin, Imdur, Lasix 40 p.o. daily, Lipitor, Lovenox, Neurontin, Pepcid, Plavix, Synthroid, Tylenol, Zofran, and allopurinol. ASSESSMENT: 1. Chronic kidney disease stage 2, stable. 2. Resolved acute kidney injury. 3. Hyperkalemia,? secondary to lisinopril, which the patient was on at home but he has not been on it here, ? secondary to constipation. 4. Dkw-soqgceq-kbjafuquw diabetes mellitus. 5. Hypertension. PLAN: 1. Continue to hold lisinopril. 2. Educate regarding low potassium diet. 3. MiraLax x1 dose. 4. Limit use of Kayexalate. 5. The patient needs to follow up with Nephrology, the patient has been following up with Dr. Soriano as outpatient. Stephanie Salcedo MD
--- NOTE | 2018-02-20 18:29 | PN ---
DATE: 02/20/2018 PULMONARY PROGRESS NOTE REFERRING PHYSICIAN: Yessi Sutton MD SUBJECTIVE: Sitting at the side of the bed. Night was unremarkable. Tolerated BiPAP well. Daughter and are at the bedside. No nausea. No vomiting. No diarrhea. No leg pain or leg swelling. PHYSICAL EXAMINATION GENERAL: In no acute distress. VITAL SIGNS: Temperature is 98, heart rate 80, respiratory rate is 20, blood pressure 115/71, pulse ox 98% on 2 liter nasal cannula. HEENT: Moist mucous membrane. Crowded airway. Mallampati score is 4. NECK: Supple. No JVD. LUNGS: Have a fair airflow with rhonchi. HEART: S1 and S2. ABDOMEN: Soft and nontender. No organomegaly. EXTREMITIES: Trace edema. NEUROLOGICAL: Awake and alert. Follows simple command. MEDICATIONS: He is on colchicine 0.6 mg daily, Coreg 3.125 mg twice a day, digoxin 0.125 mg on Saturday, Saturday and Saturday, Ecotrin 81 mg daily, ferrous sulfate 150 mg daily, insulin coverage, Kayexalate 30 g p.o. was given, Lasix 40 mg daily, Lipitor 10 mg daily, Lovenox 30 mg subcu daily, MiraLax p.r.n. basis, Neurontin 300 mg 3 times a day, Pepcid 40 mg twice a day, Plavix 75 mg daily, Synthroid 150 mcg daily, Tylenol p.r.n., Zofran p.r.n., allopurinol 300 mg daily. LABORATORY DATA: Shows hemoglobin 13.8, hematocrit 41.7, WBC 7.8, platelet is 235. Sodium 141, potassium 5.5, chloride 97, bicarbonate is 32, BUN 36, creatinine 1.8, glucose 230, calcium is 9.3. Microbiology: Blood cultures are negative. Has a myocardial stress test done. Official report is still pending. IMPRESSION AND PLAN: Severe cardiomyopathy, pulmonary hypertension, may have sleep apnea syndrome, hypothyroid, hypertension, ex-smoker, diabetes. Pulmonary point of view, doing okay. Spoke to the family at the bedside. All the questions answered. Recommended, he should have attended sleep study upon discharge as outpatient. Spoke to family and the patient about sleep apnea's relation with the cardiomyopathy. If his stress Thallium is clear and cleared for Cardiology, may go home, but will need a sleep test. Thank you and we will follow with you. Jeb Tena MD
--- NOTE | 2018-02-20 23:13 | CARD ---
APPROVED REPORT Protocol: LEXISCAN Test Type: Lexiscan Sestamibi Stress Test Attending Physician: Dr. Jeb Devlin Referring Physician: Dr. Yessi Sutton Test Indications: Chest Pain Height:5 ft 6 in Weight:196lbs Medications: Aspirin, Lipitor, Coreg, Plavix, 1Colocrys, Digoxin, Lovenox, Pepcid, Lasix, Neurontin, Insulin, Imdur, Synthroid, Iron Medical History: 67 y/o male with a history of htn, diabetes, hypothyroid, chronic renal disease, s/p CABG Target HR: 151 bpm Resting ECG: RSR. Lt.Ant.Cipriano-Block. Non Specific ST_T Changes. Resting Heart Rate: 74 bpm Resting Blood Pressure: 130/82mmHg Submaximum (85%): 128 bpm PROCEDURE Pharmacologic stress testing was performed using 0.4mg per 5ml of regadenoson given intravenously over 7-10 seconds. POST EXERCISE Reason for Termination: Protocol completed Target HR: No Max HR: 81 bpm 64% of Maximum Predicted HR: 151 bpm Exercise duration: 00:40 min:sec, 0 Stage Exercise capacity: 1.0METs Max Blood Pressure: 130/82mmHg Blood Pressure response to exercise: normal resting BP - appropriate response Heart Rate response to exercise: appropriate Chest Pain: No, none Angina index: 0 Arrhythmia: No, none ST Change: No, none Deviation: 0 mm TEST SUMMARY [id number]. INFUSIONDOSE 100:[id number]/.0. [id number]. INTERPRETATION Stress EKG Conclusion: IV LEXISCAN NUCLEAR STRESS TEST NEGATIVE FOR CHEST PAIN AND NEGATIVE FOR ADDITIONAL ST-T CHANGES. NUCLEAR SCAN REPORT PENDING. Signed by Jeb Devlin Electronically Approved: 02/19/2018 11:54:23 EXAM: Myocardial Perfusion REST/STRESS Stress Test Type: Pharmacologic Imaging Protocol Rest Spect myocardial perfusion imaging was performed in supine position 50 minutes following the injection of 10.3 mCi of Tc-99 Myoview. At peak stress, the patient was injected intravenously with 30.8mCi of Tc-99 tetrofosmin after an infusion time of 0 minutes and 10 seconds. Gated Stress Spect was performed 65 minutes after intravenous Tc-99 Myoview injection. The images were gated to evaluate regional wall motion and calculate ventricular ejection fraction.Images were reconstructed using backfilter projection method in short horizontal and verticle long axis. Spect slices were generated. LV Perfusion The quality of the study is good. The left ventricle is moderatey enlarged in size. The right ventricle is prominent. The lung uptake is borderline increased. The distribution of tracer reveals a large area of severely decreased perfusion involving mid to distal anterior, anteroseptal and apical gilman and moderately decreased pefusion in thei inferior wall on the stress study. The remainder of the LV myocardium is unremarkable. The rest myocardial perfusion study Wall Motion Gated wall moiton study shows anteroseptal and apical dyskinesisLVEF = 28%. Conclusion 1. Abnormal SPECT myocardial perfusion study. 2. Fixed, anterior, anteroseptal and apical defects are suggestive of myocardial injury / infarct. 3. Moderate to severe LV dysfunction with anteorseptal and apical dyskinesis.
--- NOTE | 2018-02-21 08:30 | PN ---
DATE: 02/20/2018 REASON FOR DICTATION: Addendum to the initial progress note dictated by the nurse practitioner. REASON FOR ADDENDUM: The patient's stress test is reviewed, preliminary shows fixed defects. Official result pending. Discussed with the patient. The patient's creatinine is 1.9. The patient is asymptomatic. Given the fact that the patient has renal insufficiency and open heart surgery history in the past, if the patient goes for cardiac catheterization, may used large volume contrast and may need worsening of the kidney, may need the dialysis, the patient does not want to be dialyzed since the patient is asymptomatic, we will treat the patient currently medically. Should it become symptomatic, consider left heart catheterization. Discussed with the patient in length, though official result is pending. Currently, the patient is on aspirin, continue aspirin, continue Coreg, and continue digoxin Saturday, Saturday and Saturday and Lipitor. We will discuss with Dr. Sutton. Thank you, Dr. Sutton, for providing us the opportunity in taking care of Moraima Lee. We will follow the result. Jeb Ramsay MD
== END 2018-02-20 13:30 | disposition home or self-care (01) | DRG 291 ==
LOC: ED 01:39 → ERH 03:47 → 2RSO 04:39 → 5RSO 02-17 21:01
PROVIDERS: ADMIT Internal Medicine; ATTEND Internal Medicine
DX: I13.0 Hypertensive heart and chronic kidney disease with heart failure and stage 1 through stage 4 chronic kidney disease, or unspecified chronic kidney disease (principal); I50.23 Acute on chronic systolic (congestive) heart failure; N17.9 Acute kidney failure, unspecified; I25.10 Atherosclerotic heart disease of native coronary artery without angina pectoris; E11.22 Type 2 diabetes mellitus with diabetic chronic kidney disease; E03.9 Hypothyroidism, unspecified; E55.9 Vitamin D deficiency, unspecified; E78.00 Pure hypercholesterolemia, unspecified; E78.5 Hyperlipidemia, unspecified; G47.30 Sleep apnea, unspecified; E66.9 Obesity, unspecified; I27.20 Pulmonary hypertension, unspecified; J44.9 Chronic obstructive pulmonary disease, unspecified; N18.3 Chronic kidney disease, stage 3 (moderate); M19.90 Unspecified osteoarthritis, unspecified site; E11.42 Type 2 diabetes mellitus with diabetic polyneuropathy; N27.0 Small kidney, unilateral; I08.3 Combined rheumatic disorders of mitral, aortic and tricuspid valves; E11.21 Type 2 diabetes mellitus with diabetic nephropathy; E87.5 Hyperkalemia; D64.9 Anemia, unspecified; I25.5 Ischemic cardiomyopathy; E11.65 Type 2 diabetes mellitus with hyperglycemia; K59.00 Constipation, unspecified; Z79.02 Long term (current) use of antithrombotics/antiplatelets; Z79.82 Long term (current) use of aspirin; Z95.1 Presence of aortocoronary bypass graft; Z87.891 Personal history of nicotine dependence; Z88.2 Allergy status to sulfonamides